=== PATIENT | female | born 1980 | race African-American/Black ===

== ENCOUNTER 2018-10-28 12:20 | Inpatient (IN) | payer OTHER ==
[2018-10-28 14:31] VITALS: BMI 20.1
--- NOTE | 2018-10-28 18:12 | HP ---
CIWA Score Nausea/Vomitin-No Nausea/No Vomiting Muscle Tremors: 3 Anxiety: 4-Mod. Anxious/Guarded Agitation: 2 Paroxysmal Sweats: 1-Minimal Palms Moist Orientation: 0-Oriented Tacttile Disturbances: 2-Mild Itch/Numbness/Burn (both feet) Auditory Disturbances: 0-None Visual Disturbances: 1-Very Mild Sensitivity Headache: 0-None Present CIWA-Ar Total Score: 13 - Admission Criteria OASAS Guidelines: Admission for Medically Managed Detox: Requires at least one of the followin. CIWA greater than 12 2. Seizures within the past 24 hours 3. Delirium tremens within the past 24 hours 4. Hallucinations within the past 24 hours 5. Acute intervention needed for co occurring medical disorder 6. Acute intervention needed for co occurring psychiatric disorder 7. Severe withdrawal that cannot be handled at a lower level of care (continued vomiting, continued diarrhea, abnormal vital signs) requiring intravenous medication and/or fluids 8. Patient presents the following: CIWA greater than 12 Admission Criteria Met: Admission criteria met Admission ROS [facility] - [facility] Chief Complaint: " I'm here for alcohol detox" Allergies/Adverse Reactions: Allergies Allergy/AdvReac Type Severity Reaction Status Date / Time No Known Drug Allergies Allergy Verified 10/28/18 17:33 History of Present Illness: 38 yo female, homeless, with hx of alcohol and crack/cocaine dependence is here seeking detox. utox positive for thc, meth, mtd, bzo, denies using any other substances other than crack /cocaine and alcohol and requested alcohol detox. Last [facility] April 2017 reports relapse soon after, reports no significant period of sobriety. Denies hx of seizures or blackouts. PMHX: bipolar, depression and schizophrenia. Denies suicidal / homicidal ideation. Exam Limitations: No Limitations - Ebola screening Have you traveled outside of the country in the last 21 days: No Have you had contact with anyone from an Ebola affected area: No Have you been sick,other than usual withdrawal symptoms: No - Review of Systems Constitutional: Chills, Changes in sleep EENT: reports: Nose Congestion Respiratory: reports: No Symptoms reported Cardiac: reports: No Symptoms Reported GI: reports: Nausea, Poor Fluid Intake : reports: No Symptoms Reported Musculoskeletal: reports: Other (foot pain) Integumentary: reports: Pruritus Neuro: reports: Paresthesia (both feet) Endocrine: reports: Increased Thirst Hematology: reports: No Symptoms Reported Psychiatric: reports: Orientated x3, Anxious Other Systems: Reviewed and Negative Patient History - Patient Medical History Hx Anemia: No Hx Asthma: No Hx Chronic Obstructive Pulmonary Disease (COPD): No Hx Cancer: No Hx Cardiac Disorders: No Hx Congestive Heart Failure: No Hx Hypertension: No Hx Hypercholesterolemia: No Hx Pacemaker: No HX Cerebrovascular Accident: No Hx Seizures: No Hx Dementia: No Hx Diabetes: No Hx Gastrointestinal Disorders: No Hx Liver Disease: No Hx Genitourinary Disorders: No Hx Sexually Transmitted Disorders: No Hx Renal Disease (ESRD): No Hx Thyroid Disease: No Hx Human Immunodeficiency Virus (HIV): No Hx Hepatitis C: No Hx Depression: No Hx Suicide Attempt: Yes (25 years old jump bridge) Hx Bipolar Disorder: Yes Hx Schizophrenia: Yes - Patient Surgical History Past Surgical History: No Hx Neurologic Surgery: No Hx Cataract Extraction: No Hx Cardiac Surgery: No Hx Lung Surgery: No Hx Breast Surgery: No Hx Breast Biopsy: No Hx Abdominal Surgery: No Hx Appendectomy: No Hx Cholecystectomy: No Hx Genitourinary Surgery: No Hx Section: No Hx Orthopedic Surgery: No Hx Hysterectomy: No Anesthesia Reaction: No - Reproductive History Patient is a Female of Child Bearing Age (11 -55 yrs old): Yes (Reports no menses has IUD ) Last Menstrual Period: 05/09/10 Patient : No - Smoking Cessation Smoking history: Current every day smoker Have you smoked in the past 12 months: Yes Aproximately how many cigarettes per day: 7 Cigars Per Day: 0 Hx Chewing Tobacco Use: No Initiated information on smoking cessation: Yes 'Breaking Loose' booklet given: 10/28/18 - Substance & Tx. History Hx Alcohol Use: Yes Hx Substance Use: Yes Substance Use Type: Alcohol, Cocaine Hx Substance Use Treatment: Yes (Last [facility] April 2017 ) - Substances Abused Alcohol Route: Oral Frequency: Daily Amount used: 1 PINT Age of first use: 25 Date of Last Use: 10/28/18 Cocaine Route: Smoking Frequency: Daily Amount used: $100 Age of first use: 25 Date of Last Use: 10/28/18 Family Disease History - Family Disease History Family Disease History: [place]: Grandparent, Other: Father (depression), Mother ( alcoholic) Admission Physical Exam [facility] - Vital Signs Vital Signs: Vital Signs - 24 hr 10/28/18 14:29 Temperature 98.9 F Pulse Rate 98 H Respiratory 18 Rate Blood Pressure 101/61 - Physical General Appearance: Yes: Disheveled (unkempt, malodorous), Thin, Irritable, Anxious HEENTM: Yes: EOMI, Hearing grossly Normal, Normal ENT Inspection, Normocephalic , Normal Voice, VJ, Pharynx Normal, Tm's normal, Other (poor dentition,) Respiratory: Yes: Chest Non-Tender, Lungs Clear, Normal Breath Sounds, No Respiratory Distress, No Accessory Muscle Use Neck: Yes: Within Normal Limits Breast: Yes: Breast Exam Deferred Cardiology: Yes: Regular Rhythm, Regular Rate Abdominal: Yes: Normal Bowel Sounds, Non Tender, Flat, Soft Genitourinary: Yes: Within Normal Limits Back: Yes: Normal Inspection Musculoskeletal: Yes: full range of Motion, Gait Steady, Pelvis Stable Extremities: Yes: Normal Capillary Refill, Normal Inspection, Normal Range of Motion, Non-Tender Neurological: Yes: conservation of resources commissioner II-XII NML intact, Fully Oriented, Alert, Motor Strength 5/5, Other (flat affect) Integumentary: Yes: Normal Color, Warm, Diaphoresis Lymphatic: Yes: Within Normal Limits - Diagnostic (1) Alcohol dependence with uncomplicated withdrawal Current Visit: Yes Status: Acute (2) Nicotine dependence Current Visit: Yes Status: Acute Qualifiers: Nicotine product type: cigarettes Substance use status: in withdrawal Qualified Code(s): F17.213 - Nicotine dependence, cigarettes, with withdrawal (3) Weight loss Current Visit: Yes Status: Acute (4) Cocaine dependence, uncomplicated Current Visit: Yes Status: Chronic Cleared for Admission [facility] - Detox or Rehab [facility] Level of Care: Medically Managed Detox Regimen/Protocol: Librium [facility] Breath Alcohol Content Breath Alcohol Content: 0 Urine Pregancy Test - Result Urine Test Results: Negative - NO Line Present Urine Drug Screen - Results Drug Screen Negative: No Urine Drug Screen Results: THC-Marijuana, JUAN ALBERTO-Cocaine, MET-Methamphetamine, BZO- Benzodiazepines, MTD-Methadone Inpatient Rehab Admission - Rehab Decision to Admit Inpatient rehab admission?: No
[2018-10-28] MEDS ORDERED: ACETAMINOPHEN 325 MG TABLET (FP) PO PRN ×2 (18:16)
[2018-10-28] MEDS ORDERED: MAGNESIUM HYDROX 2400MG/30ML ORAL SUSPENSION 30 ML CUP PO PRN (18:16)
[2018-10-28] MEDS ORDERED: MAG HYDROX/AL HYDROX/SIMETH 30 ML UNIT-DOSE CUP PO PRN (18:16)
[2018-10-28] MEDS ORDERED: ONDANSETRON *ODT* 4 MG TABLET SL PRN (18:16)
[2018-10-28] MEDS ORDERED: hydrOXYzine PAMOATE 25 MG CAPSULE (FP) PO PRN (18:16)
[2018-10-28] MEDS ORDERED: BISMUTH SUBSALICYLATE 524 MG/30 ML UD PO PRN (18:16)
[2018-10-28] MEDS ORDERED: MAGNESIUM CITRATE 300 ML BOTTLE PO PRN (18:16)
[2018-10-28] MEDS ORDERED: IBUPROFEN 400 MG TABLET (FP) PO PRN (18:16)
[2018-10-28] MEDS ORDERED: METHOCARBAMOL 500 MG TABLET PO PRN (18:16)
[2018-10-28] MEDS ORDERED: MELATONIN 5 MG TABLETS PO PRN (18:16)
[2018-10-28] MEDS ORDERED: NICOTINE POLACRILEX 2 MG GUM BUC PRN (18:16)
[2018-10-28] MEDS ORDERED: MENTHOL/PHENOL 1 EACH UD MM PRN (18:16)
[2018-10-28] MEDS: chlordiazePOXIDE HCL 10 MG CAPSULE PO PRN (20:29)
[2018-10-28] MEDS: THIAMINE HCL 100 MG TABLET (FP) PO SCH (22:21)
[2018-10-28] MEDS: chlordiazePOXIDE HCL 25 MG CAPSULE PO SCH (22:21)
[2018-10-29] MEDS: chlordiazePOXIDE HCL 25 MG CAPSULE PO SCH ×2 (06:35→14:26)
[2018-10-29] MEDS: PRENATAL VITAMINS W/ FOLIC ACID TABLET (FP) PO SCH (10:32)
[2018-10-29] MEDS: NICOTINE 14 MG/24 HOURS TOPICAL PATCH TD SCH (10:32)
--- NOTE | 2018-10-29 12:16 | CONSULT ---
[facility] Psychiatric Consult - Data Date of interview: 10/29/18 Admission source: [facility] Identifying data: Readmission to [facility] for this 38 y/o AA female self- referred for detoxification (cocaine, alcohol). Patient is single, no children, homeless, unemployed and supported on SSI benefits. Substance Abuse History: patient declines to discuss her pattern of substance abuse. Information taken from current [facility] report as follows : Smoking history: Current every day smoker. Have you smoked in the past 12 months: Yes. Aproximately how many cigarettes per day: 7. Cigars Per Day: 0. Hx Chewing Tobacco Use: No. Initiated information on smoking cessation: Yes. 'Breaking Loose' booklet given: 10/28/18. - Substance & Tx. History. Hx Alcohol Use: Yes. Hx Substance Use: Yes. Substance Use Type: Alcohol, Cocaine. Hx Substance Use Treatment: Yes (Last [facility] April 2017 ). - Substances Abused. Alcohol. Route: Oral. Frequency: Daily. Amount used: 1 PINT. Age of first use: 25. Date of Last Use: 10/28/18. Cocaine. Route: Smoking. Frequency: Daily. Amount used: $100. Age of first use: 25. Date of Last Use: 10/28/18 Medical History: Patient declines to provide information about medical history. Psychiatric History: Patient is a hostile and irritable historian. She, however , admits to a history of psychiatric illness which started in her late 20's. Diagnosed with Schizophrenia. Medicated with decanoate haloperidol. Ms Warner reports monthly follow-up with the [facility] team. She denies history of suicide attempts but records at [facility] indicate a distant suicide attempt, at age 25, via jumping off of a bridge. Physical/Sexual Abuse/Trauma History: No information. Ms Warner declines discussion in this domain. Additional Comment: Urine Drug Screen Results: THC-Marijuana, JUAN ALBERTO-Cocaine, MET- Methamphetamine, BZO-Benzodiazepines, MTD-Methadone. Noted. Mental Status Exam - Mental Status Exam Alert and Oriented to: Time, Place, Person Cognitive Function: Grossly Intact Patient Appearance: Unkempt, Disheveled Mood: Angry, Hostile, Withdrawn, Irritable Affect: Inappropriate, Mood Congruent Patient Behavior: Fatigued, Uncooperative, Guarded Speech Pattern: Clear Voice Loudness: Normal Thought Process: Goal Oriented Thought Disorder: Not Present Hallucinations: Denies Suicidal Ideation: Denies Homicidal Ideation: Denies Insight/Judgement: Poor Sleep: Fair Appetite: Good Gait/Station: Other (not observed ; in bed for entire interview) Psychiatric Findings - Problem List ([place] 1, 2,3) (1) Alcohol dependence with uncomplicated withdrawal Current Visit: Yes Status: Acute (2) Cocaine dependence, uncomplicated Current Visit: Yes Status: Chronic (3) Nicotine dependence Current Visit: Yes Status: Chronic Qualifiers: Nicotine product type: cigarettes Substance use status: in withdrawal Qualified Code(s): F17.213 - Nicotine dependence, cigarettes, with withdrawal (4) Substance induced mood disorder Current Visit: Yes Status: Suspected (5) Schizophrenia Current Visit: Yes Status: Chronic Comment: On haloperidol decanoate. Dose not disclosed. Patient is followed by the [facility] team. - Initial Treatment Plan Initial Treatment Plan: Psychoeducation to be initiated when patient becomes more cooperative. Support. Sleep hygiene. Detoxification. Contact ACT team for information about dose of decanoate and date of last injection. AA/NA meetings. Observation. Evaluated with medical students in attendance (with patient's verbal authorization).
[2018-10-29 12:44] LABS: ALK PHOS 54 U/L (45-117); ANION GAP 2 MMOL/L (8-16); BILIRUBIN,TOTAL 0.3 mg/dL (0.2-1); BLOOD UREA NITROGEN 13 mg/dL (7-18); CALCIUM 8.3 mg/dL (8.5-10.1); CHLORIDE 110 mmol/L (98-107); CO2 30 mmol/L (21-32); GLUCOSE,RANDOM 84 mg/dL (74-106); POTASSIUM 4.3 mmol/L (3.5-5.1); SGOT/AST 12 U/L (15-37); SGPT/ALT 12 U/L (13-61); SODIUM 141 mmol/L (136-145); TOT PROT 6.6 g/dl (6.4-8.2)
[2018-10-29 13:08] LABS: HEMATOCRIT 37.1 % (32.4-45.2); HEMOGLOBIN 12.4 GM/dL (10.7-15.3); MCH 32.2 pg (25.7-33.7); MCHC 33.5 g/dl (32.0-36.0); MEAN CELL VOLUME 96.1 fl (80-96); MEAN PLT VOLUME 7.4 fl (7.5-11.1); PLATELET COUNT 338 K/MM3 (134-434); RBC 3.86 M/mm3 (3.60-5.2); RDW 14.4 % (11.6-15.6); WHITE BLOOD COUNT 4.6 K/mm3 (4.0-10.0)
--- NOTE | 2018-10-29 13:17 | PN ---
[facility] CIWA - CIWA Score Nausea/Vomitin-No Nausea/No Vomiting Muscle Tremors: 2 Anxiety: 1-Mildly Anxious Agitation: 1-Slight > Activity Paroxysmal Sweats: 1-Minimal Palms Moist Orientation: 2-Disoriented Date<2 days Tacttile Disturbances: 0-None Auditory Disturbances: 0-None Visual Disturbances: 0-None Headache: 1-Very Mild CIWA-Ar Total Score: 8 S Progress Note (SOAP) Subjective: tremor sweating restlessness trouble sleep through the night Objective: 10/29/18 13:29 Vital Signs Temperature 97.3 F L 10/29/18 09:16 Pulse Rate 81 10/29/18 09:16 Respiratory Rate 18 10/29/18 09:16 Blood Pressure 90/53 L 10/29/18 09:16 O2 Sat by Pulse Oximetry (%) Laboratory Last Values WBC 4.6 K/mm3 (4.0-10.0) 10/29/18 07:00 RBC 3.86 M/mm3 (3.60-5.2) 10/29/18 07:00 Hgb 12.4 GM/dL (10.7-15.3) 10/29/18 07:00 Hct 37.1 % (32.4-45.2) 10/29/18 07:00 MCV 96.1 fl (80-96) H 10/29/18 07:00 MCH 32.2 pg (25.7-33.7) 10/29/18 07:00 MCHC 33.5 g/dl (32.0-36.0) 10/29/18 07:00 RDW 14.4 % (11.6-15.6) 10/29/18 07:00 Plt Count 338 K/MM3 (134-434) 10/29/18 07:00 MPV 7.4 fl (7.5-11.1) L 10/29/18 07:00 Sodium 141 mmol/L (136-145) 10/29/18 07:00 Potassium 4.3 mmol/L (3.5-5.1) 10/29/18 07:00 Chloride 110 mmol/L (98-107) H 10/29/18 07:00 Carbon Dioxide 30 mmol/L (21-32) 10/29/18 07:00 Anion Gap 2 MMOL/L (8-16) L 10/29/18 07:00 BUN 13 mg/dL (7-18) 10/29/18 07:00 Creatinine 1.0 mg/dL (0.55-1.3) 10/29/18 07:00 Creat Clearance w eGFR > 60 (>60) 10/29/18 07:00 Random Glucose 84 mg/dL (74-106) 10/29/18 07:00 Calcium 8.3 mg/dL (8.5-10.1) L 10/29/18 07:00 Total Bilirubin 0.3 mg/dL (0.2-1) 10/29/18 07:00 AST 12 U/L (15-37) L 10/29/18 07:00 ALT 12 U/L (13-61) L 10/29/18 07:00 Alkaline Phosphatase 54 U/L (45-117) 10/29/18 07:00 Total Protein 6.6 g/dl (6.4-8.2) 10/29/18 07:00 Albumin 3.0 g/dl (3.4-5.0) L 10/29/18 07:00 lab noted Assessment: 10/29/18 13:30 withdrawal sx Plan: continue detox
[2018-10-29] MEDS: THIAMINE HCL 100 MG TABLET (FP) PO SCH (22:22)
[2018-10-29] MEDS: chlordiazePOXIDE 5 MG CAPSULE PO SCH (22:23)
[2018-10-29] MEDS: chlordiazePOXIDE HCL 10 MG CAPSULE PO PRN (23:31)
[2018-10-30] MEDS: chlordiazePOXIDE 5 MG CAPSULE PO SCH ×2 (05:50→13:04)
[2018-10-30] MEDS: PRENATAL VITAMINS W/ FOLIC ACID TABLET (FP) PO SCH (10:41)
[2018-10-30] MEDS: NICOTINE 14 MG/24 HOURS TOPICAL PATCH TD SCH (10:41)
--- NOTE | 2018-10-30 13:43 | DS ---
[facility] Detox Discharge Summary Admission Date: 10/28/18 Discharge Date: 10/30/18 - History Present History: Alcohol Dependence Additional Comments: 38 years old female admitted on 10/28/18 for alcohol withdrawal stabilization feeling better today preferring alcohol rehab today alert no acute distress, [facility] - Physical Exam Results Vital Signs: Vital Signs Temperature 97.9 F 10/30/18 13:32 Pulse Rate 89 10/30/18 13:32 Respiratory Rate 18 10/30/18 13:32 Blood Pressure 110/73 10/30/18 13:32 O2 Sat by Pulse Oximetry (%) Pertinent Admission Physical Exam Findings: withdrawal sx Laboratory Last Values WBC 4.6 K/mm3 (4.0-10.0) 10/29/18 07:00 RBC 3.86 M/mm3 (3.60-5.2) 10/29/18 07:00 Hgb 12.4 GM/dL (10.7-15.3) 10/29/18 07:00 Hct 37.1 % (32.4-45.2) 10/29/18 07:00 MCV 96.1 fl (80-96) H 10/29/18 07:00 MCH 32.2 pg (25.7-33.7) 10/29/18 07:00 MCHC 33.5 g/dl (32.0-36.0) 10/29/18 07:00 RDW 14.4 % (11.6-15.6) 10/29/18 07:00 Plt Count 338 K/MM3 (134-434) 10/29/18 07:00 MPV 7.4 fl (7.5-11.1) L 10/29/18 07:00 Sodium 141 mmol/L (136-145) 10/29/18 07:00 Potassium 4.3 mmol/L (3.5-5.1) 10/29/18 07:00 Chloride 110 mmol/L (98-107) H 10/29/18 07:00 Carbon Dioxide 30 mmol/L (21-32) 10/29/18 07:00 Anion Gap 2 MMOL/L (8-16) L 10/29/18 07:00 BUN 13 mg/dL (7-18) 10/29/18 07:00 Creatinine 1.0 mg/dL (0.55-1.3) 10/29/18 07:00 Creat Clearance w eGFR > 60 (>60) 10/29/18 07:00 Random Glucose 84 mg/dL (74-106) 10/29/18 07:00 Calcium 8.3 mg/dL (8.5-10.1) L 10/29/18 07:00 Total Bilirubin 0.3 mg/dL (0.2-1) 10/29/18 07:00 AST 12 U/L (15-37) L 10/29/18 07:00 ALT 12 U/L (13-61) L 10/29/18 07:00 Alkaline Phosphatase 54 U/L (45-117) 10/29/18 07:00 Total Protein 6.6 g/dl (6.4-8.2) 10/29/18 07:00 Albumin 3.0 g/dl (3.4-5.0) L 10/29/18 07:00 RPR Titer Nonreactive (NONREACTIVE) 10/29/18 07:00 lab noted - Treatment Hospital Course: Detox Protocol Followed, Detoxed Safely, Responded well, Discharged Condition Good, Rehab Referral Accepted Patient [facility] - Medication Discharge Medications: Ambulatory Orders Haloperidol Decanoate [Haldol Decanoate (Long-Acting) -] 500 mg IM MONTHLY 10/28 - Diagnosis (1) Alcohol dependence with uncomplicated withdrawal Current Visit: Yes Status: Acute (2) Weight loss Current Visit: Yes Status: Acute (3) Nicotine dependence Current Visit: Yes Status: Acute Qualifiers: Nicotine product type: cigarettes Substance use status: in withdrawal Qualified Code(s): F17.213 - Nicotine dependence, cigarettes, with withdrawal (4) Substance induced mood disorder Current Visit: Yes Status: Suspected (5) GERD (gastroesophageal reflux disease) Current Visit: Yes Status: Chronic Qualifiers: Esophagitis presence: without esophagitis Qualified Code(s): K21.9 - Gastro -esophageal reflux disease without esophagitis (6) Bipolar II disorder Current Visit: Yes Status: Suspected - AMA Did Patient Leave Against Medical Advice: No
--- NOTE | 2018-10-30 18:56 | PN ---
[facility] Progress Note Note: Psychiatry Attending's note : Attempt made by this senior grant writer to contact [facility] team. Called psychiatrist, Dr Ollie Grossman. For information about dose of haldol decanoate. At [phone] : no response. Will follow.
[2018-10-30] MEDS ORDERED: chlordiazePOXIDE HCL 10 MG CAPSULE PO PRN (21:00)
[2018-10-30] MEDS: chlordiazePOXIDE HCL 10 MG CAPSULE PO SCH (22:22)
[2018-10-31] MEDS: chlordiazePOXIDE HCL 10 MG CAPSULE PO SCH (06:26)
[2018-10-31 09:12] VITALS: BP 85/53; PULSE 80; TEMP 97.8
--- NOTE | 2018-10-31 19:15 | DS ---
[facility] Detox Discharge Summary Admission Date: 10/28/18 Discharge Date: 10/31/18 - History Present History: Alcohol Dependence, Cocaine Dependence Additional Comments: PATIENT COMPLETED FULL DETOX REGIMEN. HOWEVER, WHILE POSSIBILITY OF REHAB ADMISSION AT [facility] ([place], [place]) WAS BEING INVESTIGATED FOR PATIENT, SHE ELECTED TO LEAVE DESPITE ENCOURAGEMENT TO REMAIN FOR REHAB) AND NOTED THAT SHE WOULD RETURN TO PREVIOUS '[facility].' PATIENT ALSO REPORTS THAT SHE WOULD RETURN TO PREVIOUS [facility] - ACT TEAM IN [place], [place] FOR AFTERCARE. PATIENT ALSO ADVISED TO CONSIDER LOCAL 12-STEP / NA / AA OUTPATIENT SUPPORT GROUP PROGRAMS FOR AFTERCARE. PATIENT VERBALIZED UNDERSTANDING OF RECOMMENDATION. PATIENT WAS DISCHARGED IN DETOX UNIT IN STABLE MEDICAL CONDITION. Pertinent Past History: History of Bipolar Disorder, History of Schizoaffective Disorder, Nicotine Dependence, Weight Loss. - Physical Exam Results Vital Signs: Vital Signs Temperature 97.8 F 10/31/18 09:11 Pulse Rate 80 10/31/18 09:11 Respiratory Rate 16 10/31/18 09:11 Blood Pressure 85/53 L 10/31/18 09:11 O2 Sat by Pulse Oximetry (%) Pertinent Admission Physical Exam Findings: WITHDRAWAL SYMPTOMS. Laboratory Tests 10/29/18 10/29/18 10/29/18 07:00 07:00 07:00 WBC 4.6 RBC 3.86 Hgb 12.4 Hct 37.1 MCV 96.1 H MCH 32.2 MCHC 33.5 RDW 14.4 Plt Count 338 MPV 7.4 L Sodium 141 Potassium 4.3 Chloride 110 H Carbon Dioxide 30 Anion Gap 2 L BUN 13 Creatinine 1.0 Creat Clearance w eGFR > 60 Random Glucose 84 Calcium 8.3 L Total Bilirubin 0.3 AST 12 L ALT 12 L Alkaline Phosphatase 54 Total Protein 6.6 Albumin 3.0 L RPR Titer Nonreactive LABS NOTED. - Treatment Hospital Course: Detox Protocol Followed, Detoxed Safely, Responded well, Discharged Condition Good Patient has Accepted a Rehab Referral to: PATIENT ADVISED TO CONSIDER LOCAL 12- STEP/NA/AA OUTPATIENT SUPPORT GROUPS. - Medication Discharge Medications: Ambulatory Orders Haloperidol Decanoate [Haldol Decanoate (Long-Acting) -] 500 mg IM MONTHLY 10/28 - Diagnosis (1) Alcohol dependence with uncomplicated withdrawal Status: Acute (2) Weight loss Status: Acute (3) Cocaine dependence, uncomplicated Status: Chronic (4) Nicotine dependence Status: Acute Qualifiers: Nicotine product type: cigarettes Substance use status: in withdrawal Qualified Code(s): F17.213 - Nicotine dependence, cigarettes, with withdrawal (5) Schizophrenia Status: Chronic Qualifiers: Schizophrenia type: unspecified Qualified Code(s): F20.9 - Schizophrenia, unspecified (6) Substance induced mood disorder Status: Suspected - AMA Did Patient Leave Against Medical Advice: No
== END 2018-10-31 11:13 | disposition home or self-care (01) | DRG 774 ==
LOC: YASAS 12:20 → Y3N 19:32
PROVIDERS: ADMIT Surgery; ATTEND Surgery
PROC: HZ2ZZZZ Detoxification Services for Substance Abuse Treatment (ICD-10-PCS; principal; 2018-10-28)
DX: F10.230 Alcohol dependence with withdrawal, uncomplicated (principal); F14.20 Cocaine dependence, uncomplicated; F17.213 Nicotine dependence, cigarettes, with withdrawal; F20.9 Schizophrenia, unspecified; F19.24 Other psychoactive substance dependence with psychoactive substance-induced mood disorder; F31.81 Bipolar II disorder; K21.9 Gastro-esophageal reflux disease without esophagitis; Z97.5 Presence of (intrauterine) contraceptive device; Z91.5 Personal history of self-harm
CPT/HCPCS: 36415; 80053; 85027; 86593

== ENCOUNTER 2018-12-20 16:51 | Inpatient (IN) | payer OTHER ==
[2018-12-20 20:07] VITALS: BMI 20.8
--- NOTE | 2018-12-20 21:43 | HP ---
CIWA Score Nausea/Vomitin-No Nausea/No Vomiting Muscle Tremors: 4-Moderate,w/Arms Extend Anxiety: 4-Mod. Anxious/Guarded Agitation: 4-Moderately Restless Paroxysmal Sweats: 3 Orientation: 3-Disoriented Date>2 days Tacttile Disturbances: 2-Mild Itch/Numbness/Burn Auditory Disturbances: 2-Mild Harshness/Frighten (here intermitent voices- non commanding) Visual Disturbances: 2-Mild Sensitivity Headache: 2-Mild CIWA-Ar Total Score: 26 - Admission Criteria OASAS Guidelines: Admission for Medically Managed Detox: Requires at least one of the followin. CIWA greater than 12 2. Seizures within the past 24 hours 3. Delirium tremens within the past 24 hours 4. Hallucinations within the past 24 hours 5. Acute intervention needed for co occurring medical disorder 6. Acute intervention needed for co occurring psychiatric disorder 7. Severe withdrawal that cannot be handled at a lower level of care (continued vomiting, continued diarrhea, abnormal vital signs) requiring intravenous medication and/or fluids 8. Patient presents the following: CIWA greater than 12, Acute intervention needed for co-occurring med or psych disorder Admission Criteria Met: Admission criteria met Admission ROS [facility] Chief Complaint: C/O WITHDRAWAL SX'S. SEEKING DETOX Allergies/Adverse Reactions: Allergies Allergy/AdvReac Type Severity Reaction Status Date / Time No Known Drug Allergies Allergy Verified 12/20/18 19:56 History of Present Illness: 38 y.o femaLE WITH ALCOHOLISM HERE FOR DETOX. CLIENT IS KNOWN TOT HIS PROGRAM. LAST HERE 10/2018. REFERRED BY OUTPATIENT MUSIC ASSISTANT TODAY. PRESENTS WITH C/O WITHDRAWAL SX'S. CIWA 26. REPORTS SEIZURE 4 WEEKS AGO REQUIRING HOSPITALIZATION FOR FACIAL INJURY FALLING FROM STAIRS. HAS BEEN DRINKING DAILY FOR THE PAST MONTH. LAST DRINK 1 DAY AGO.HAS SUTURES TO FORHEAD...... DENIES SIGNIFICANT PERIOD OF CLEAN TIME. DENIES SI/HI/UNDOMICILED, SSI, DENIES LEGALS Exam Limitations: No Limitations - Ebola screening Have you traveled outside of the country in the last 21 days: No (N) Have you had contact with anyone from an Ebola affected area: No Do you have a fever: No - Review of Systems Constitutional: Chills, Night Sweats, Changes in sleep EENT: reports: No Symptoms Reported Respiratory: reports: No Symptoms reported Cardiac: reports: No Symptoms Reported GI: reports: Poor Fluid Intake, Abdominal cramping : reports: No Symptoms Reported Musculoskeletal: reports: No Symptoms Reported Integumentary: reports: Other (HEALING LAC TO FORHEAD WITH SUTURES) Neuro: reports: Headache, Numbness, Seizure (LAST 4 WEEKS AGO), Tremors Endocrine: reports: No Symptoms Reported Hematology: reports: No Symptoms Reported Psychiatric: reports: Orientated x3, Anxious, other (SCHIZOPHRENIA) Other Systems: Reviewed and Negative Patient History - Patient Medical History Hx Anemia: No Hx Asthma: No Hx Chronic Obstructive Pulmonary Disease (COPD): No Hx Cancer: No Hx Cardiac Disorders: No Hx Congestive Heart Failure: No Hx Hypertension: No Hx Hypercholesterolemia: No Hx Pacemaker: No HX Cerebrovascular Accident: No Hx Seizures: Yes (LAST 4 WEEKS AGO) Hx Dementia: No Hx Diabetes: No Hx Gastrointestinal Disorders: No Hx Liver Disease: No Hx Genitourinary Disorders: No Hx Sexually Transmitted Disorders: No Hx Renal Disease (ESRD): No Hx Thyroid Disease: No Hx Human Immunodeficiency Virus (HIV): No Hx Hepatitis C: No Hx Depression: No Hx Suicide Attempt: Yes (25 years old jump bridge) Hx Bipolar Disorder: Yes Hx Schizophrenia: Yes - Patient Surgical History Past Surgical History: No Hx Neurologic Surgery: No Hx Cataract Extraction: No Hx Cardiac Surgery: No Hx Lung Surgery: No Hx Breast Surgery: No Hx Breast Biopsy: No Hx Abdominal Surgery: No Hx Appendectomy: No Hx Cholecystectomy: No Hx Genitourinary Surgery: No Hx Section: No Hx Orthopedic Surgery: No Hx Hysterectomy: No Anesthesia Reaction: No - PPD History Previous Implant?: Yes Documented Results: Negative w/proof Implanted On Prior [facility] Admission?: Yes Date: 10/30/18 Results: 0MM PPD to be Administered?: No - Reproductive History Last Menstrual Period: 05/09/10 - Smoking Cessation Smoking history: Current every day smoker Have you smoked in the past 12 months: Yes Aproximately how many cigarettes per day: 7 Cigars Per Day: 0 Hx Chewing Tobacco Use: No Initiated information on smoking cessation: Yes 'Breaking Loose' booklet given: 12/20/18 - Substance & Tx. History Hx Alcohol Use: Yes Hx Substance Use: Yes Substance Use Type: Alcohol, Cocaine, Marijuana Hx Substance Use Treatment: Yes ([facility]) - Substances abused Alcohol Substance route: Oral Frequency: Daily Amount used: 1PINT Age of first use: 21 Date of last use: 12/19/18 Crack Substance route: Smoking Frequency: Daily Amount used: $200 Age of first use: 24 Date of last use: 12/19/18 Marijuana/Hashish Substance route: Oral Frequency: Daily Amount used: 1 JOINT Age of first use: 21 Date of last use: 12/19/18 Family Disease History - Family Disease History Family Disease History: [place]: Grandparent, Other: Father (depression), Mother ( alcoholic) Admission Physical Exam [facility] - Vital Signs Vital Signs: Vital Signs - 24 hr 12/20/18 19:52 Temperature 97.3 F L Pulse Rate 76 Respiratory 18 Rate Blood Pressure 121/91 - Physical General Appearance: Yes: Disheveled, Tremorous, Anxious HEENTM: Yes: Normal Voice, JV, Pharynx Normal, Other (SUTURES NOTED TO 3 AREAS TO THE FOREHEAD WITH HEALED LACERATIONS POOR DENTITION MISSING TEETH) Respiratory: Yes: Chest Non-Tender, Lungs Clear, Normal Breath Sounds, No Respiratory Distress, No Accessory Muscle Use Neck: Yes: No masses,lesions,Nodules, Supple, Trachea in good position Breast: Yes: Breast Exam Deferred Cardiology: Yes: Regular Rhythm, Regular Rate, S1, S2 Abdominal: Yes: Normal Bowel Sounds, Non Tender, Flat, Soft Genitourinary: Yes: Within Normal Limits (NO C/O) Back: Yes: Normal Inspection Musculoskeletal: Yes: full range of Motion, Gait Steady Extremities: Yes: Normal Capillary Refill, Normal Range of Motion, Non-Tender, Tremors Neurological: Yes: Fully Oriented, Alert, Motor Strength 5/5, Depressed Affect Integumentary: Yes: Dry, Warm Lymphatic: Yes: Within Normal Limits - Diagnostic (1) Withdrawal seizures Current Visit: Yes Status: Chronic Qualifiers: Complication of substance-induced condition: uncomplicated Qualified Code(s ): F19.230 - Other psychoactive substance dependence with withdrawal, uncomplicated; R56.9 - Unspecified convulsions (2) Auditory hallucination Current Visit: Yes Status: Chronic (3) Alcohol dependence with uncomplicated withdrawal Current Visit: Yes Status: Acute (4) Nicotine dependence Current Visit: Yes Status: Chronic Qualifiers: Nicotine product type: cigarettes Substance use status: in withdrawal Qualified Code(s): F17.213 - Nicotine dependence, cigarettes, with withdrawal (5) Cocaine dependence, uncomplicated Current Visit: Yes Status: Chronic (6) Schizophrenia Current Visit: Yes Status: Chronic Qualifiers: Schizophrenia type: unspecified Qualified Code(s): F20.9 - Schizophrenia, unspecified Comment: On haloperidol decanoate. Dose not disclosed. Patient is followed by the [facility] team. (7) Substance induced mood disorder Current Visit: Yes Status: Chronic (8) Attention to dressings and sutures Current Visit: Yes Status: Chronic Comment: NEEDS TO BE REMOVED APPEARS TO HAVE BEEN PRESENT LONGER THAN 10 DAYS Cleared for Admission [facility] - Detox or Rehab [facility] Level of Care: Medically Managed Detox Regimen/Protocol: Librium Claeared for Rehab Admission: No Inpatient Rehab Admission - Rehab Decision to Admit Inpatient rehab admission?: No
[2018-12-20] MEDS ORDERED: METHOCARBAMOL 500 MG TABLET PO PRN (21:51)
[2018-12-20] MEDS ORDERED: P-EPHED 60MG/TRIPROLIDI 2.5MG TABLET PO PRN (21:51)
[2018-12-20] MEDS ORDERED: ONDANSETRON *ODT* 4 MG TABLET SL PRN (21:51)
[2018-12-20] MEDS ORDERED: DICYCLOMINE HCL 10 MG CAPSULE PO PRN (21:51)
[2018-12-20] MEDS ORDERED: MAGNESIUM CITRATE 300 ML BOTTLE PO PRN (21:51)
[2018-12-20] MEDS ORDERED: MENTHOL/PHENOL 1 EACH UD MM PRN (21:51)
[2018-12-20] MEDS ORDERED: hydrOXYzine PAMOATE 25 MG CAPSULE (FP) PO PRN (21:51)
[2018-12-20] MEDS ORDERED: MAGNESIUM HYDROX 2400MG/30ML ORAL SUSPENSION 30 ML CUP PO PRN (21:51)
[2018-12-20] MEDS ORDERED: ACETAMINOPHEN 325 MG TABLET (FP) PO PRN ×2 (21:51)
[2018-12-20] MEDS ORDERED: IBUPROFEN 400 MG TABLET (FP) PO PRN ×2 (21:51)
[2018-12-20] MEDS ORDERED: MELATONIN 5 MG TABLETS PO PRN (21:51)
[2018-12-20] MEDS ORDERED: MAG HYDROX/AL HYDROX/SIMETH 30 ML UNIT-DOSE CUP PO PRN (21:51)
[2018-12-20] MEDS ORDERED: chlordiazePOXIDE HCL 25 MG CAPSULE PO PRN (21:51)
[2018-12-20] MEDS ORDERED: BISMUTH SUBSALICYLATE 524 MG/30 ML UD PO PRN (21:51)
[2018-12-20] MEDS ORDERED: guaiFENesin 200 MG/10 ML 10 ML UNIT-DOSE CUPS PO PRN (21:51)
[2018-12-20] MEDS: THIAMINE HCL 100 MG TABLET (FP) PO SCH (23:56)
[2018-12-20] MEDS: traZODone HCL 50 MG TABLET (FP) PO PRN (23:58)
[2018-12-20] MEDS: chlordiazePOXIDE HCL 25 MG CAPSULE PO SCH (23:58)
[2018-12-21] MEDS: chlordiazePOXIDE HCL 25 MG CAPSULE PO SCH ×4 (06:19→22:19)
[2018-12-21 10:21] LABS: ALBUMIN 2.9 g/dl (3.4-5.0); ALK PHOS 67 U/L (45-117); ANION GAP 4 MMOL/L (8-16); BILIRUBIN,TOTAL 0.2 mg/dL (0.2-1); BLOOD UREA NITROGEN 14 mg/dL (7-18); CALCIUM 7.9 mg/dL (8.5-10.1); CHLORIDE 112 mmol/L (98-107); CO2 28 mmol/L (21-32); CREATININE 0.9 mg/dL (0.55-1.3); GLUCOSE,RANDOM 83 mg/dL (74-106); POTASSIUM 4.2 mmol/L (3.5-5.1); SGOT/AST 11 U/L (15-37); SGPT/ALT 10 U/L (13-61); SODIUM 144 mmol/L (136-145); TOT PROT 5.9 g/dl (6.4-8.2)
[2018-12-21 10:30] LABS: HEMOGLOBIN 12.2 GM/dL (10.7-15.3); MCH 31.8 pg (25.7-33.7); MEAN CELL VOLUME 96.4 fl (80-96); MEAN PLT VOLUME 7.6 fl (7.5-11.1); PLATELET COUNT 312 K/MM3 (134-434); RBC 3.83 M/mm3 (3.60-5.2); RDW 15.8 % (11.6-15.6); WHITE BLOOD COUNT 4.5 K/mm3 (4.0-10.0)
[2018-12-21] MEDS: PRENATAL VITAMINS W/ FOLIC ACID TABLET (FP) PO SCH (10:34)
[2018-12-21] MEDS: NICOTINE 14 MG/24 HOURS TOPICAL PATCH TD SCH (10:34)
--- NOTE | 2018-12-21 11:07 | CONSULT ---
[facility] Psychiatric Consult - Data Date of interview: 12/21/18 Admission source: [facility] Identifying data: Another admission to [facility] for this 38 y/o AA female self- referred for detoxification (cocaine, cannabis, alcohol). Patient is single, no children, homeless, unemployed and supported on SSI benefits. Substance Abuse History: Discussed with patient. [facility] report is confrmed. See details : Smoking history: Current every day smoker. Have you smoked in the past 12 months: Yes. Aproximately how many cigarettes per day: 7. Cigars Per Day: 0. Hx Chewing Tobacco Use: No. Initiated information on smoking cessation : Yes. 'Breaking Loose' booklet given: 12/20/18. - Substance & Tx. History. Hx Alcohol Use: Yes. Hx Substance Use: Yes. Substance Use Type: Alcohol, Cocaine, Marijuana. Hx Substance Use Treatment: Yes ([facility]). - Substances abused. Alcohol. Substance route: Oral. Frequency: Daily. Amount used: 1PINT. Age of first use: 21. Date of last use: 12/19/18. Crack. Substance route: Smoking. Frequency: Daily. Amount used: $200. Age of first use: 24. Date of last use: 12/19/18. Marijuana/Hashish. Substance route: Oral. Frequency: Daily. Amount used: 1 JOINT. Age of first use: 21. Date of last use: 12/19/18 Medical History: Seizure disorder. Noted abrasions of the forehead (result of a fall, days ago, in the context of an ictal episode). Psychiatric History: Patient admits to an extensive history of psychiatric illness (onset in late 20's). Diagnosed with Schizophrenia. History of multiple psychiatric hospitalizations. " I have been admitted all over ". Patient indicates maintenance on haloperidol decanoate (dose not recalled by patient). Ms Warner reports monthly follow-up with the [facility]. She denies history of suicide attempts but records at [facility] indicate a distant suicide attempt at age 25 (jump off of a bridge). Physical/Sexual Abuse/Trauma History: Not discussed : patient is uncooperative. Additional Comment: Toxicology is not available. Mental Status Exam - Mental Status Exam Alert and Oriented to: Time, Place, Person Cognitive Function: Grossly Intact Patient Appearance: Unkempt, Disheveled (healed abrasions on forehead) Mood: Angry, Hostile, Nervous, Withdrawn, Irritable Affect: Mood Congruent, Constricted Patient Behavior: Fatigued, Uncooperative Speech Pattern: Clear Voice Loudness: Normal Thought Process: Disorganized Thought Disorder: Bizarre Hallucinations: Denies Suicidal Ideation: Denies Homicidal Ideation: Denies Insight/Judgement: Poor Sleep: Well Appetite: Good Muscle strength/Tone: Normal Gait/Station: Normal Psychiatric Findings - Problem List ([place] 1, 2,3) (1) Alcohol dependence with uncomplicated withdrawal Status: Acute (2) Cocaine dependence, uncomplicated Status: Chronic (3) Cannabis dependence Status: Chronic (4) Nicotine dependence Status: Acute Qualifiers: Nicotine product type: cigarettes Substance use status: in withdrawal Qualified Code(s): F17.213 - Nicotine dependence, cigarettes, with withdrawal (5) Schizophrenia Status: Suspected Qualifiers: Schizophrenia type: unspecified Qualified Code(s): F20.9 - Schizophrenia, unspecified Comment: On haloperidol decanoate. Dose not disclosed. Patient is followed by the [facility]. (6) Substance induced mood disorder Status: Chronic - Initial Treatment Plan Initial Treatment Plan: Psychoeducation. Records ([facility]) are revisited. Support. Detoxification. Contact [facility] for collateral information. AA meetings. Observation.
--- NOTE | 2018-12-21 14:50 | PN ---
S CIWA - CIWA Score Nausea/Vomitin-No Nausea/No Vomiting Muscle Tremors: 2 Anxiety: 4-Mod. Anxious/Guarded Agitation: 3 Paroxysmal Sweats: 3 Orientation: 0-Oriented Tacttile Disturbances: 0-None Auditory Disturbances: 0-None Visual Disturbances: 0-None Headache: 0-None Present CIWA-Ar Total Score: 12 [facility] Progress Note (SOAP) Subjective: C/O SLIGHT ANXIETY BUT MODERATE SWEATING. Objective: 12/21/18 14:49 Vital Signs 12/21/18 12/21/18 09:35 13:27 Temperature 97.0 F L 97.8 F Pulse Rate 70 94 H Respiratory 18 18 Rate Blood Pressure 92/60 99/68 Laboratory Tests 12/21/18 12/21/18 07:45 08:00 WBC 4.5 RBC 3.83 Hgb 12.2 Hct 37.0 MCV 96.4 H MCH 31.8 MCHC 33.0 RDW 15.8 H Plt Count 312 MPV 7.6 Sodium 144 Potassium 4.2 Chloride 112 H Carbon Dioxide 28 Anion Gap 4 L BUN 14 Creatinine 0.9 Creat Clearance w eGFR 70.85 Random Glucose 83 Calcium 7.9 L Total Bilirubin 0.2 AST 11 L ALT 10 L Alkaline Phosphatase 67 Total Protein 5.9 L Albumin 2.9 L Assessment: 12/21/18 14:49 WITHDRAWAL SX Plan: CONTINUE DETOX INCREASE PO FLUIDS
[2018-12-21 18:23] LABS: EPI CELLS 10.3 /HPF (0-5/HPF); PH,URINE 5.5 (5.0-8.0); URINE APPEARANCE TURBID; URINE BACTERIA 139.6 /hpf (NEGATIVE); URINE BILIRUBIN NEGATIVE (NEGATIVE); URINE CASTS 8 /lpf (0-8); URINE COLOR YELLOW; URINE GLUCOSE (UA) NEGATIVE (NEGATIVE); URINE KETONE TRACE (NEGATIVE); URINE LEUK ESTERASE TRACE (NEGATIVE); URINE NITRITE NEGATIVE (NEGATIVE); URINE PROTEIN NEGATIVE (NEGATIVE); URINE UROBILINOGEN 0.2 mg/dL (0.2-1.0); URINE WBC 4 /hpf (0-5)
[2018-12-21 18:24] LABS: URINE CRYSTALS OXALATE /hpf
[2018-12-21] MEDS: THIAMINE HCL 100 MG TABLET (FP) PO SCH (22:19)
[2018-12-22] MEDS: chlordiazePOXIDE HCL 25 MG CAPSULE PO SCH ×3 (06:46→17:09)
[2018-12-22] MEDS: NICOTINE POLACRILEX 2 MG GUM BUC PRN ×2 (10:17→18:10)
[2018-12-22] MEDS: PRENATAL VITAMINS W/ FOLIC ACID TABLET (FP) PO SCH (10:17)
[2018-12-22] MEDS: NICOTINE 14 MG/24 HOURS TOPICAL PATCH TD SCH (10:17)
--- NOTE | 2018-12-22 12:44 | PN ---
[facility] CIWA - CIWA Score Nausea/Vomitin-Mild Nausea/No Vomiting Muscle Tremors: 3 Anxiety: 3 Agitation: 2 Paroxysmal Sweats: 1-Minimal Palms Moist Orientation: 1-Uncertain about Date Tacttile Disturbances: 0-None Auditory Disturbances: 0-None Visual Disturbances: 0-None Headache: 1-Very Mild CIWA-Ar Total Score: 12 S Progress Note (SOAP) Subjective: Vital Signs Temperature 96.7 F L 12/22/18 09:23 Pulse Rate 81 12/22/18 09:23 Respiratory Rate 18 12/22/18 09:23 Blood Pressure 111/64 12/22/18 09:23 O2 Sat by Pulse Oximetry (%) Laboratory Last Values WBC 4.5 K/mm3 (4.0-10.0) 12/21/18 08:00 RBC 3.83 M/mm3 (3.60-5.2) 12/21/18 08:00 Hgb 12.2 GM/dL (10.7-15.3) 12/21/18 08:00 Hct 37.0 % (32.4-45.2) 12/21/18 08:00 MCV 96.4 fl (80-96) H 12/21/18 08:00 MCH 31.8 pg (25.7-33.7) 12/21/18 08:00 MCHC 33.0 g/dl (32.0-36.0) 12/21/18 08:00 RDW 15.8 % (11.6-15.6) H 12/21/18 08:00 Plt Count 312 K/MM3 (134-434) 12/21/18 08:00 MPV 7.6 fl (7.5-11.1) 12/21/18 08:00 Sodium 144 mmol/L (136-145) 12/21/18 07:45 Potassium 4.2 mmol/L (3.5-5.1) 12/21/18 07:45 Chloride 112 mmol/L (98-107) H 12/21/18 07:45 Carbon Dioxide 28 mmol/L (21-32) 12/21/18 07:45 Anion Gap 4 MMOL/L (8-16) L 12/21/18 07:45 BUN 14 mg/dL (7-18) 12/21/18 07:45 Creatinine 0.9 mg/dL (0.55-1.3) 12/21/18 07:45 Creat Clearance w eGFR 70.85 (>60) 12/21/18 07:45 Random Glucose 83 mg/dL (74-106) 12/21/18 07:45 Calcium 7.9 mg/dL (8.5-10.1) L 12/21/18 07:45 Total Bilirubin 0.2 mg/dL (0.2-1) 12/21/18 07:45 AST 11 U/L (15-37) L 12/21/18 07:45 ALT 10 U/L (13-61) L 12/21/18 07:45 Alkaline Phosphatase 67 U/L (45-117) 12/21/18 07:45 Total Protein 5.9 g/dl (6.4-8.2) L 12/21/18 07:45 Albumin 2.9 g/dl (3.4-5.0) L 12/21/18 07:45 Urine Color Yellow 12/21/18 12:26 Urine Appearance Turbid 12/21/18 12:26 Urine pH 5.5 (5.0-8.0) 12/21/18 12:26 Ur Specific [place] 1.030 (1.010-1.035) 12/21/18 12:26 Urine Protein Negative (NEGATIVE) 12/21/18 12:26 Urine Glucose (UA) Negative (NEGATIVE) 12/21/18 12:26 Urine Ketones Trace (NEGATIVE) H 12/21/18 12:26 Urine Blood Negative (NEGATIVE) 12/21/18 12:26 Urine Nitrite Negative (NEGATIVE) 12/21/18 12:26 Urine Bilirubin Negative (NEGATIVE) 12/21/18 12:26 Urine Urobilinogen 0.2 mg/dL (0.2-1.0) 12/21/18 12:26 Ur Leukocyte Esterase Trace (NEGATIVE) 12/21/18 12:26 Urine WBC (Auto) 4 /hpf (0-5) 12/21/18 12:26 Urine Casts (Auto) 8 /lpf (0-8) 12/21/18 12:26 U Epithel Cells (Auto) 10.3 /HPF (0-5/HPF) 12/21/18 12:26 Urine Crystals (Auto) Oxalate /hpf 12/21/18 12:26 Urine Bacteria (Auto) 139.6 /hpf (NEGATIVE) 12/21/18 12:26 RPR Titer Nonreactive (NONREACTIVE) 12/21/18 07:45 lab noted low ca oscal Objective: 12/22/18 12:41 tired low energy tolerate food and fluid well Assessment: 12/22/18 12:43 alcohol withdrawal sx Plan: continue detox
[2018-12-22] MEDS: CALCIUM 250MG/VIT-D 125 UNITS 1 COMBO TABLET PO SCH ×2 (14:30→22:13)
[2018-12-22] MEDS: THIAMINE HCL 100 MG TABLET (FP) PO SCH (22:13)
[2018-12-22] MEDS: traZODone HCL 50 MG TABLET (FP) PO PRN (22:13)
[2018-12-22] MEDS: chlordiazePOXIDE HCL 10 MG CAPSULE PO SCH (22:13)
[2018-12-22] MEDS: VITAMINS A AND D TOPICAL OINTMENT 60 GM TUBE TP SCH ×2 (22:16→23:12)
[2018-12-22] MEDS ORDERED: chlordiazePOXIDE HCL 10 MG CAPSULE PO PRN (23:00)
[2018-12-23] MEDS: chlordiazePOXIDE HCL 10 MG CAPSULE PO SCH ×2 (06:03→10:23)
[2018-12-23] MEDS: VITAMINS A AND D TOPICAL OINTMENT 60 GM TUBE TP SCH ×2 (06:03→13:22)
[2018-12-23 09:22] VITALS: BP 88/63; PULSE 90; TEMP 96.7
[2018-12-23] MEDS: NICOTINE 14 MG/24 HOURS TOPICAL PATCH TD SCH (10:23)
[2018-12-23] MEDS: PRENATAL VITAMINS W/ FOLIC ACID TABLET (FP) PO SCH (10:23)
[2018-12-23] MEDS: CALCIUM 250MG/VIT-D 125 UNITS 1 COMBO TABLET PO SCH (10:23)
--- NOTE | 2018-12-23 12:13 | DS ---
[facility] Detox Discharge Summary Admission Date: 12/20/18 Discharge Date: 12/23/18 - History Present History: Alcohol Dependence Additional Comments: 38 years old female admitted on 12/20/18 for alcohol withdrawal stabilization feeling better today wants to go to rehab [facility] Physical Exam Results Vital Signs: Vital Signs Temperature 96.7 F L 12/23/18 09:22 Pulse Rate 90 12/23/18 09:22 Respiratory Rate 20 12/23/18 09:22 Blood Pressure 88/63 L 12/23/18 09:22 O2 Sat by Pulse Oximetry (%) Pertinent Admission Physical Exam Findings: alcohol withdrawal sx Laboratory Last Values WBC 4.5 K/mm3 (4.0-10.0) 12/21/18 08:00 RBC 3.83 M/mm3 (3.60-5.2) 12/21/18 08:00 Hgb 12.2 GM/dL (10.7-15.3) 12/21/18 08:00 Hct 37.0 % (32.4-45.2) 12/21/18 08:00 MCV 96.4 fl (80-96) H 12/21/18 08:00 MCH 31.8 pg (25.7-33.7) 12/21/18 08:00 MCHC 33.0 g/dl (32.0-36.0) 12/21/18 08:00 RDW 15.8 % (11.6-15.6) H 12/21/18 08:00 Plt Count 312 K/MM3 (134-434) 12/21/18 08:00 MPV 7.6 fl (7.5-11.1) 12/21/18 08:00 Sodium 144 mmol/L (136-145) 12/21/18 07:45 Potassium 4.2 mmol/L (3.5-5.1) 12/21/18 07:45 Chloride 112 mmol/L (98-107) H 12/21/18 07:45 Carbon Dioxide 28 mmol/L (21-32) 12/21/18 07:45 Anion Gap 4 MMOL/L (8-16) L 12/21/18 07:45 BUN 14 mg/dL (7-18) 12/21/18 07:45 Creatinine 0.9 mg/dL (0.55-1.3) 12/21/18 07:45 Creat Clearance w eGFR 70.85 (>60) 12/21/18 07:45 Random Glucose 83 mg/dL (74-106) 12/21/18 07:45 Calcium 7.9 mg/dL (8.5-10.1) L 12/21/18 07:45 Total Bilirubin 0.2 mg/dL (0.2-1) 12/21/18 07:45 AST 11 U/L (15-37) L 12/21/18 07:45 ALT 10 U/L (13-61) L 12/21/18 07:45 Alkaline Phosphatase 67 U/L (45-117) 12/21/18 07:45 Total Protein 5.9 g/dl (6.4-8.2) L 12/21/18 07:45 Albumin 2.9 g/dl (3.4-5.0) L 12/21/18 07:45 Urine Color Yellow 12/21/18 12:26 Urine Appearance Turbid 12/21/18 12:26 Urine pH 5.5 (5.0-8.0) 12/21/18 12:26 Ur Specific [place] 1.030 (1.010-1.035) 12/21/18 12:26 Urine Protein Negative (NEGATIVE) 12/21/18 12:26 Urine Glucose (UA) Negative (NEGATIVE) 12/21/18 12:26 Urine Ketones Trace (NEGATIVE) H 12/21/18 12:26 Urine Blood Negative (NEGATIVE) 12/21/18 12:26 Urine Nitrite Negative (NEGATIVE) 12/21/18 12:26 Urine Bilirubin Negative (NEGATIVE) 12/21/18 12:26 Urine Urobilinogen 0.2 mg/dL (0.2-1.0) 12/21/18 12:26 Ur Leukocyte Esterase Trace (NEGATIVE) 12/21/18 12:26 Urine WBC (Auto) 4 /hpf (0-5) 12/21/18 12:26 Urine Casts (Auto) 8 /lpf (0-8) 12/21/18 12:26 U Epithel Cells (Auto) 10.3 /HPF (0-5/HPF) 12/21/18 12:26 Urine Crystals (Auto) Oxalate /hpf 12/21/18 12:26 Urine Bacteria (Auto) 139.6 /hpf (NEGATIVE) 12/21/18 12:26 POC Urine HCG, Qual Negative 12/20/18 21:39 RPR Titer Nonreactive (NONREACTIVE) 12/21/18 07:45 lab noted - Treatment Hospital Course: Detox Protocol Followed, Detoxed Safely, Responded well, Discharged Condition Good, Rehab Referral Accepted Patient has Accepted a Rehab Referral to: [facility] - Medication Discharge Medications: Ambulatory Orders Haloperidol Decanoate [Haldol Decanoate (Long-Acting) -] 500 mg IM MONTHLY 10/28 - Diagnosis (1) Alcohol dependence with uncomplicated withdrawal Current Visit: Yes Status: Acute (2) Nicotine dependence Current Visit: Yes Status: Acute Qualifiers: Nicotine product type: cigarettes Substance use status: in withdrawal Qualified Code(s): F17.213 - Nicotine dependence, cigarettes, with withdrawal (3) Schizophrenia Current Visit: Yes Status: Suspected Qualifiers: Schizophrenia type: unspecified Qualified Code(s): F20.9 - Schizophrenia, unspecified (4) Weight loss Current Visit: Yes Status: Acute (5) GERD (gastroesophageal reflux disease) Current Visit: Yes Status: Chronic Qualifiers: Esophagitis presence: without esophagitis Qualified Code(s): K21.9 - Gastro -esophageal reflux disease without esophagitis - AMA Did Patient Leave Against Medical Advice: No
--- NOTE | 2018-12-23 13:25 | PN ---
[facility] Progress Note Note: Psychiatry Attending's note (follow-up) : Met with the patient. Discussion : haloperidol decanoate. Ms Warner allowed MD to contact ACT psychiatrist, Dr Cooley. At [phone]. History taken. Dose (100 mg IM monthly) : confirmed. Dr Ignacio states that injection was due last week. Information appreciated. Conversation with " Dr Alvarado " took place in the presence of the patient. Haldol decanoate 100 mg IM + cogentin 1 mg po to be dispensed on 12/24/18. Side effects/benefits discussed with patient. Ms warner is agreeable with this plan.
[2018-12-23] MEDS ORDERED: chlordiazePOXIDE HCL 10 MG CAPSULE PO SCH (23:00)
== END 2018-12-23 13:35 | disposition other institution (70) | DRG 774 ==
LOC: YASAS 16:51 → Y3N 23:17
PROVIDERS: ADMIT Neuromusculoskeletal Medicine & OMM; ATTEND Neuromusculoskeletal Medicine & OMM
PROC: HZ2ZZZZ Detoxification Services for Substance Abuse Treatment (ICD-10-PCS; principal; 2018-12-20)
DX: F10.230 Alcohol dependence with withdrawal, uncomplicated (principal); F14.20 Cocaine dependence, uncomplicated; F12.20 Cannabis dependence, uncomplicated; F17.213 Nicotine dependence, cigarettes, with withdrawal; F20.9 Schizophrenia, unspecified; F19.24 Other psychoactive substance dependence with psychoactive substance-induced mood disorder; E83.51 Hypocalcemia; K21.9 Gastro-esophageal reflux disease without esophagitis; G40.509 Epileptic seizures related to external causes, not intractable, without status epilepticus; R44.0 Auditory hallucinations; R63.4 Abnormal weight loss; Z68.20 Body mass index [BMI] 20.0-20.9, adult
CPT/HCPCS: 36415; 80053; 81003; 81025; 85027; 86593

== ENCOUNTER 2018-12-23 13:34 | Inpatient (IN) | payer OTHER ==
--- NOTE | 2018-12-23 12:18 | HP ---
[facility] Re[facility] Assess/Revision - Admission History Admitted to Rehab from: [facility] Date of Admission to Rehab: 12/23/18 - Findings Detox History & Physical reviewed: Yes Concur with findings: Yes Comments/Additional Findings: transferred from detox to rehab admission as per protocol Inpatient Rehab Admission - Rehab Decision to Admit Inpatient rehab admission?: Yes - Initial Determination Are CD services needed?: Yes Free of communicable disease: Yes Not in need of hospitalization: Yes - Rehab Admission Criteria Previous failed treatment: Yes Poor recovery environment: Yes Comorbidities: Yes Lacks judgement: No Patient is meeting Inpatient Rehab admission criteria:: Yes
[~2018-12-23 13:34] MED LIST: LOPERAMIDE HCL 2 MG CAPSULE PO PRN; MAG HYDROX/AL HYDROX/SIMETH 30 ML UNIT-DOSE CUP PO PRN; MAGNESIUM CITRATE 300 ML BOTTLE PO PRN; MAGNESIUM HYDROX 2400MG/30ML ORAL SUSPENSION 30 ML CUP PO PRN; MENTHOL/PHENOL 1 EACH UD MM PRN; NICOTINE 14 MG/24 HOURS TOPICAL PATCH TD PRN; P-EPHED 60MG/TRIPROLIDI 2.5MG TABLET PO PRN; guaiFENesin 200 MG/10 ML 10 ML UNIT-DOSE CUPS PO PRN
[2018-12-23] MEDS: GABAPENTIN 300 MG CAPSULE (FP) PO SCH ×2 (15:00→21:26)
[2018-12-23] MEDS: THIAMINE HCL 100 MG TABLET (FP) PO SCH (21:26)
[2018-12-23] MEDS: BENZTROPINE MESYLATE 1 MG TABLET (FP) PO SCH (21:27)
[2018-12-24] MEDS: GABAPENTIN 300 MG CAPSULE (FP) PO SCH ×3 (07:10→21:32)
--- NOTE | 2018-12-24 08:29 | CONSULT ---
[facility] Psychiatric Consult - Data Date of interview: 12/24/18 Admission source: 3N Identifying data: Ms Wraner is a 38 years old single Black female, unemployed receving SSI, homeless seeking rehab treatment for alcohol, cocaine and cannabis Substance Abuse History: Reports history of alcohol, crack cocaine and marijuana use. Refer to addiction counsselor's summary for further information Medical History: Significant for seizure disorder. Noted abrasions of the forehead (result of a fall, days ago, in the context of an ictal episode). Smokes 7 cigarettes daily Psychiatric History: Patient was seen recently on 12/21/[address] Benites while admitted to detox. She has an extensive history of psychiatric illness since her late 20's when she was diagnosed with Schizophrenia. She has had multiple psychiatric hospitalizations. She could not name any of the institutions but told Dr Benites:" I have been admitted all over ". She is under of Dr Ignacio from [facility] and she is prescribed Haldol Decanoate 100 mg IM for which she is over due. She denies history of suicide attempts but records at [facility] indicate a distant suicide attempt at age 25 (jump off of a bridge). At present , denies experiencing psychotic symptoms, S/H ideations. However, reports feeling depressed, anxious and sleeping poorly Physical/Sexual Abuse/Trauma History: Denies history of emotional, physica or sexual abuse as well as DV relationship Additional Comment: Denies criminal history Mental Status Exam - Mental Status Exam Alert and Oriented to: Time, Place, Person Cognitive Function: Fair Patient Appearance: Well Groomed Mood: Depressed, Anxious, Irritable Affect: Appropriate Speech Pattern: Clear Thought Process: Intact Thought Disorder: Not Present Hallucinations: Denies Suicidal Ideation: Denies Homicidal Ideation: Denies Insight/Judgement: Poor Sleep: Poorly Appetite: Good Muscle strength/Tone: Normal Gait/Station: Normal Psychiatric Findings - Problem List ([place] 1, 2,3) (1) Schizophrenia Current Visit: No Status: Chronic Qualifiers: Schizophrenia type: unspecified Qualified Code(s): F20.9 - Schizophrenia, unspecified Comment: On haloperidol decanoate. Dose not disclosed. Patient is followed by the [facility] team. (2) Substance induced mood disorder Current Visit: Yes Status: Acute (3) Substance-induced sleep disorder Current Visit: Yes Status: Acute (4) Nicotine dependence Current Visit: No Status: Chronic Qualifiers: Nicotine product type: cigarettes Substance use status: in withdrawal Qualified Code(s): F17.213 - Nicotine dependence, cigarettes, with withdrawal (5) Withdrawal seizures Current Visit: No Status: Chronic Qualifiers: Complication of substance-induced condition: uncomplicated Qualified Code(s ): F19.230 - Other psychoactive substance dependence with withdrawal, uncomplicated; R56.9 - Unspecified convulsions - Initial Treatment Plan Initial Treatment Plan: 1) Continue Cogentin 0.5 mg po BID. 2) Resume Haldol Decanoate 100 mg IM stat. 3) Continue inpatient rehabilitation
[2018-12-24] MEDS ORDERED: HALOPERIDOL DECANOATE 100 MG/ML IM ONE (09:37)
[2018-12-24] MEDS ORDERED: HALOPERIDOL DECANOATE 100 MG/ML IM SCH (09:45)
[2018-12-24] MEDS ORDERED: BENZTROPINE MESYLATE 1 MG TABLET (FP) PO SCH (10:00)
[2018-12-24] MEDS: PRENATAL VITAMINS W/ FOLIC ACID TABLET (FP) PO SCH (10:03)
[2018-12-24] MEDS: BENZTROPINE MESYLATE 1 MG TABLET (FP) PO SCH ×2 (10:26→21:32)
--- NOTE | 2018-12-24 15:54 | PN ---
[facility] Progress Note Note: PT IS A NEW PT WHO COMPLETED DETOX ON [facility] ON 12/23/18. PT HAS HEALING SUTURED SCARS ON FOREHEAD BEFORE ARRIVING HERE FOR DETOX. REPORTS SHE HAD A SEIZURE AND SUSTAINED INJURY. STATES WAS TOLD SUTURES WERE DISSOLVABLE TYPE. PT IS ALERT O X 3. Vital Signs - 24 hr 12/24/18 12/24/18 12/24/18 01:07 03:30 07:09 Temperature 97.7 F Pulse Rate 77 Respiratory 18 18 18 Rate Blood Pressure 87/59 L HEAD:NORMOCEPHALIC FOREHEAD: SUTURE AREA CLEAN, NO DRAINAGE OR SWELLING AND HEALING. PLAN:BACITRACIN OINTMENT DIRECTED. STAFF TO MONITOR HEALING PROGRESS.
[2018-12-24] MEDS: IBUPROFEN 400 MG TABLET (FP) PO PRN (17:23)
[2018-12-24] MEDS: NICOTINE POLACRILEX 2 MG GUM BUC PRN (18:33)
[2018-12-24] MEDS: THIAMINE HCL 100 MG TABLET (FP) PO SCH (21:32)
[2018-12-24] MEDS: MELATONIN 5 MG TABLETS PO PRN (21:32)
[2018-12-24] MEDS: BACITRACIN 0.9 GM PACKET TP SCH (21:33)
[2018-12-25] MEDS: GABAPENTIN 300 MG CAPSULE (FP) PO SCH ×3 (07:47→21:57)
[2018-12-25] MEDS: BACITRACIN 0.9 GM PACKET TP SCH ×2 (10:38→21:16)
[2018-12-25] MEDS: PRENATAL VITAMINS W/ FOLIC ACID TABLET (FP) PO SCH (10:38)
[2018-12-25] MEDS: BENZTROPINE MESYLATE 1 MG TABLET (FP) PO SCH ×2 (10:38→21:17)
[2018-12-25] MEDS: NICOTINE POLACRILEX 2 MG GUM BUC PRN ×2 (13:36→19:09)
[2018-12-25] MEDS: ACETAMINOPHEN 325 MG TABLET (FP) PO PRN ×2 (15:28→21:15)
[2018-12-25] MEDS: IBUPROFEN 400 MG TABLET (FP) PO PRN (19:47)
[2018-12-25] MEDS: THIAMINE HCL 100 MG TABLET (FP) PO SCH (21:18)
[2018-12-26] MEDS: GABAPENTIN 300 MG CAPSULE (FP) PO SCH ×3 (08:03→21:36)
[2018-12-26] MEDS: BACITRACIN 0.9 GM PACKET TP SCH ×2 (09:49→21:36)
[2018-12-26] MEDS: BENZTROPINE MESYLATE 1 MG TABLET (FP) PO SCH ×2 (09:49→21:37)
[2018-12-26] MEDS: PRENATAL VITAMINS W/ FOLIC ACID TABLET (FP) PO SCH (09:49)
[2018-12-26] MEDS: NICOTINE POLACRILEX 2 MG GUM BUC PRN (13:29)
[2018-12-26] MEDS: THIAMINE HCL 100 MG TABLET (FP) PO SCH (21:36)
[2018-12-26] MEDS: MELATONIN 5 MG TABLETS PO PRN (21:38)
[2018-12-27] MEDS: GABAPENTIN 300 MG CAPSULE (FP) PO SCH ×3 (06:50→21:06)
[2018-12-27] MEDS: BENZTROPINE MESYLATE 1 MG TABLET (FP) PO SCH ×2 (09:46→21:06)
[2018-12-27] MEDS: PRENATAL VITAMINS W/ FOLIC ACID TABLET (FP) PO SCH (09:46)
[2018-12-27] MEDS: BACITRACIN 0.9 GM PACKET TP SCH ×2 (09:46→21:06)
[2018-12-27] MEDS: NICOTINE POLACRILEX 2 MG GUM BUC PRN ×3 (14:52→21:07)
[2018-12-27] MEDS: ACETAMINOPHEN 325 MG TABLET (FP) PO PRN (16:46)
[2018-12-27] MEDS: THIAMINE HCL 100 MG TABLET (FP) PO SCH (21:07)
[2018-12-27] MEDS: MELATONIN 5 MG TABLETS PO PRN (21:07)
[2018-12-28] MEDS: GABAPENTIN 300 MG CAPSULE (FP) PO SCH ×3 (07:42→23:04)
[2018-12-28] MEDS: PRENATAL VITAMINS W/ FOLIC ACID TABLET (FP) PO SCH (09:54)
[2018-12-28] MEDS: BENZTROPINE MESYLATE 1 MG TABLET (FP) PO SCH ×2 (09:54→23:04)
[2018-12-28] MEDS: BACITRACIN 0.9 GM PACKET TP SCH ×2 (09:54→23:04)
[2018-12-28] MEDS: NICOTINE POLACRILEX 2 MG GUM BUC PRN ×2 (12:49→18:06)
[2018-12-28] MEDS: THIAMINE HCL 100 MG TABLET (FP) PO SCH (23:04)
[2018-12-29] MEDS: MELATONIN 5 MG TABLETS PO PRN ×2 (02:58→21:36)
[2018-12-29] MEDS: GABAPENTIN 300 MG CAPSULE (FP) PO SCH ×3 (05:03→21:36)
[2018-12-29] MEDS: BACITRACIN 0.9 GM PACKET TP SCH ×2 (10:09→21:35)
[2018-12-29] MEDS: PRENATAL VITAMINS W/ FOLIC ACID TABLET (FP) PO SCH (10:09)
[2018-12-29] MEDS: BENZTROPINE MESYLATE 1 MG TABLET (FP) PO SCH ×2 (10:09→21:36)
[2018-12-29] MEDS: NICOTINE POLACRILEX 2 MG GUM BUC PRN (10:09)
[2018-12-29] MEDS: ACETAMINOPHEN 325 MG TABLET (FP) PO PRN (16:21)
[2018-12-29] MEDS: THIAMINE HCL 100 MG TABLET (FP) PO SCH (21:35)
[2018-12-30] MEDS: GABAPENTIN 300 MG CAPSULE (FP) PO SCH ×3 (06:37→21:35)
[2018-12-30] MEDS: PRENATAL VITAMINS W/ FOLIC ACID TABLET (FP) PO SCH (09:23)
[2018-12-30] MEDS: BACITRACIN 0.9 GM PACKET TP SCH ×2 (09:23→21:35)
[2018-12-30] MEDS: BENZTROPINE MESYLATE 1 MG TABLET (FP) PO SCH ×2 (09:24→21:36)
[2018-12-30] MEDS: ACETAMINOPHEN 325 MG TABLET (FP) PO PRN ×2 (09:29→15:38)
[2018-12-30] MEDS: NICOTINE POLACRILEX 2 MG GUM BUC PRN (17:21)
[2018-12-30] MEDS: THIAMINE HCL 100 MG TABLET (FP) PO SCH (21:35)
[2018-12-30] MEDS: MELATONIN 5 MG TABLETS PO PRN (21:35)
[2018-12-31] MEDS: GABAPENTIN 300 MG CAPSULE (FP) PO SCH ×3 (06:43→22:07)
[2018-12-31] MEDS: PRENATAL VITAMINS W/ FOLIC ACID TABLET (FP) PO SCH (09:37)
[2018-12-31] MEDS: BACITRACIN 0.9 GM PACKET TP SCH ×2 (09:37→22:07)
[2018-12-31] MEDS: BENZTROPINE MESYLATE 1 MG TABLET (FP) PO SCH ×2 (09:37→22:07)
[2018-12-31] MEDS: ACETAMINOPHEN 325 MG TABLET (FP) PO PRN (14:52)
[2018-12-31] MEDS: THIAMINE HCL 100 MG TABLET (FP) PO SCH (22:08)
[2018-12-31] MEDS: MELATONIN 5 MG TABLETS PO PRN (22:08)
[2019-01-01] MEDS: GABAPENTIN 300 MG CAPSULE (FP) PO SCH ×3 (06:41→21:03)
[2019-01-01] MEDS: ACETAMINOPHEN 325 MG TABLET (FP) PO PRN ×2 (08:56→15:00)
[2019-01-01] MEDS: BACITRACIN 0.9 GM PACKET TP SCH ×2 (09:46→21:04)
[2019-01-01] MEDS: PRENATAL VITAMINS W/ FOLIC ACID TABLET (FP) PO SCH (09:46)
[2019-01-01] MEDS: BENZTROPINE MESYLATE 1 MG TABLET (FP) PO SCH ×2 (09:47→21:03)
--- NOTE | 2019-01-01 11:18 | PN ---
S Progress Note Note: Patient reports sleeping poorly despite taking Melatonin 5 mg at bedtime. Will order Belsomra 10 mg po HS prn for insomnia. Indications and propterties of medication discussed with patient
[2019-01-01] MEDS: NICOTINE POLACRILEX 2 MG GUM BUC PRN (17:54)
[2019-01-01] MEDS: IBUPROFEN 400 MG TABLET (FP) PO PRN (18:10)
[2019-01-01] MEDS: THIAMINE HCL 100 MG TABLET (FP) PO SCH (21:04)
[2019-01-01] MEDS: SUVOREXANT 10 MG TABLET PO PRN (21:06)
[2019-01-02] MEDS: GABAPENTIN 300 MG CAPSULE (FP) PO SCH ×3 (06:37→21:44)
[2019-01-02] MEDS: IBUPROFEN 400 MG TABLET (FP) PO PRN ×2 (08:57→18:52)
[2019-01-02] MEDS: BENZTROPINE MESYLATE 1 MG TABLET (FP) PO SCH ×2 (09:00→21:45)
[2019-01-02] MEDS: PRENATAL VITAMINS W/ FOLIC ACID TABLET (FP) PO SCH (09:00)
[2019-01-02] MEDS: BACITRACIN 0.9 GM PACKET TP SCH ×2 (09:00→21:44)
[2019-01-02] MEDS: ACETAMINOPHEN 325 MG TABLET (FP) PO PRN (15:02)
--- NOTE | 2019-01-02 15:22 | PN ---
S Progress Note Note: PT HAD 2 AREAS OF STITCHES ON HER FOREHEAD ON ADMISSION WHICH IS REPORTS WAS FROM A FALL DUE TO SEIZURE. PT WAS NOT ABLE TO REMEMBER WHEN STITCHES WERE DONE OR WHEN TOLD TO COME BACK TO TAKE THEM OUT. SKIN AREA APPEARS HEALED OVER SOME STITCHES. PT NOW REQUESTING TO TAKE OUT THE STITCHES. D/W PT THIS CREDIT RISK MODELER WITH NURSE JESUS VARGAS WILL BE PRESENT TO ASSIST. Vital Signs - 24 hr 01/02/19 01/02/19 01/02/19 00:30 03:30 06:53 Temperature 97.7 F Pulse Rate 71 Respiratory 16 16 18 Rate Blood Pressure 103/72 FOREHEAD:STITCHES TAKING OUT WITH STITCH REMOVAL KIT. UNABLE TO COUNT NUMBER OF STITCHES SOME WERE ALREADY REMOVED OR FELL OFF. SKIN INTACT, NO DRAINAGE OR OPEN . A:S/P SUTURES PLAN:CLEANED WITH BETADINE SWAB BACITRACIN OINTMENT APPLY DIRECTED.
[2019-01-02] MEDS: THIAMINE HCL 100 MG TABLET (FP) PO SCH (21:44)
[2019-01-02] MEDS: SUVOREXANT 10 MG TABLET PO PRN (21:45)
[2019-01-03 06:34] VITALS: TEMP 97.8
[2019-01-03] MEDS: GABAPENTIN 300 MG CAPSULE (FP) PO SCH ×3 (07:49→22:05)
[2019-01-03] MEDS: IBUPROFEN 400 MG TABLET (FP) PO PRN ×2 (08:55→17:49)
[2019-01-03] MEDS: BENZTROPINE MESYLATE 1 MG TABLET (FP) PO SCH ×2 (09:34→22:05)
[2019-01-03] MEDS: PRENATAL VITAMINS W/ FOLIC ACID TABLET (FP) PO SCH (09:34)
[2019-01-03] MEDS: BACITRACIN 0.9 GM PACKET TP SCH ×2 (10:08→23:44)
[2019-01-03] MEDS: ACETAMINOPHEN 325 MG TABLET (FP) PO PRN ×2 (14:22→22:06)
[2019-01-03] MEDS: NICOTINE POLACRILEX 2 MG GUM BUC PRN (17:54)
[2019-01-03] MEDS: THIAMINE HCL 100 MG TABLET (FP) PO SCH (22:05)
[2019-01-03] MEDS: SUVOREXANT 10 MG TABLET PO PRN (22:09)
[2019-01-04] MEDS: GABAPENTIN 300 MG CAPSULE (FP) PO SCH ×3 (07:42→21:02)
[2019-01-04 07:45] VITALS: BP 99/66; PULSE 85
[2019-01-04] MEDS: PRENATAL VITAMINS W/ FOLIC ACID TABLET (FP) PO SCH (09:27)
[2019-01-04] MEDS: BACITRACIN 0.9 GM PACKET TP SCH ×2 (09:27→21:03)
[2019-01-04] MEDS: BENZTROPINE MESYLATE 1 MG TABLET (FP) PO SCH ×2 (09:27→21:02)
[2019-01-04] MEDS: IBUPROFEN 400 MG TABLET (FP) PO PRN ×2 (09:28→17:01)
[2019-01-04] MEDS: NICOTINE POLACRILEX 2 MG GUM BUC PRN (14:33)
--- NOTE | 2019-01-04 17:42 | PN ---
[facility] Progress Note Note: Psychiatry Attending's note (follow-up) : Asked to re-evaluate this patient who insisted on seeing psychiatrist. Reason : complaint of insomnia. NOT supported or corroborated by nursing staff. Nurses Lydia Carroll report that this patient sleeps soundly at night. There is no indication for addition / dose increase of medications. Additional issue : report of threat to harm others, by nursing home social worker Rosas Chávez. Ms Chávez's brief note of 01/03/19 : read and appreciated. Case discussed with nurse Carly. Chart reviewed. Met with the patient. Ms Warner is already known to MD. Patient is noted as medication-seeking, disorganized and intrusive. Alleged threats revisited. Patient denies. " I am fine. I don't have thoughts to hurt people. Please, I don't want to leave this program ". Patient denies hallucinations. Mildly suspicious of others. Moderately anxious. Manageable. Ms Warner is NOT a a danger to self or others at time of this intervention. Noted as improved. Patient is alert and fully oriented. Cooperative with process description writer. Receptive to redirections. Baseline. Support and reassurance provided in this session. Patient responded favorably to this intervention.
[2019-01-04] MEDS: ACETAMINOPHEN 325 MG TABLET (FP) PO PRN (19:40)
[2019-01-04] MEDS: THIAMINE HCL 100 MG TABLET (FP) PO SCH (21:03)
[2019-01-04] MEDS: SUVOREXANT 10 MG TABLET PO PRN (21:03)
[2019-01-05] MEDS: GABAPENTIN 300 MG CAPSULE (FP) PO SCH ×3 (07:43→21:32)
[2019-01-05] MEDS: PRENATAL VITAMINS W/ FOLIC ACID TABLET (FP) PO SCH (09:32)
[2019-01-05] MEDS: BENZTROPINE MESYLATE 1 MG TABLET (FP) PO SCH ×2 (09:32→21:32)
[2019-01-05] MEDS: BACITRACIN 0.9 GM PACKET TP SCH ×2 (09:32→21:32)
[2019-01-05] MEDS: ACETAMINOPHEN 325 MG TABLET (FP) PO PRN ×2 (09:33→21:33)
[2019-01-05] MEDS: THIAMINE HCL 100 MG TABLET (FP) PO SCH (21:32)
[2019-01-05] MEDS ORDERED: MELATONIN 5 MG TABLETS PO PRN (22:13)
[2019-01-06] MEDS ORDERED: diphenhydrAMINE HCL 25 MG CAPSULE (FP) PO PRN (00:16)
[2019-01-06] MEDS: GABAPENTIN 300 MG CAPSULE (FP) PO SCH (07:30)
--- NOTE | 2019-01-06 08:56 | PN ---
S Progress Note Note: Psychiatric nurse practitioner note: Patient scheduled for discharge today. A 30 day script of cogentin 0.5mg BID (# 60 tablets) was sent to [facility] at [address] [place] [address].
[2019-01-06] MEDS: BENZTROPINE MESYLATE 1 MG TABLET (FP) PO SCH (09:10)
[2019-01-06] MEDS: BACITRACIN 0.9 GM PACKET TP SCH (09:10)
[2019-01-06] MEDS: PRENATAL VITAMINS W/ FOLIC ACID TABLET (FP) PO SCH (09:10)
--- NOTE | 2019-01-06 12:27 | PN ---
S Progress Note Note: REHAB DISCHARGE NOTE: PATIENT SCHEDULED FOR DISCHARGE TODAY FROM REHAB. AFTERCARE ARRANGED FOR URBAN PATHWAY TODAY AT 11AM. PATIENT ENCOURAGED TO ATTEND GROUP MEETINGS AND TO COMPLETE REHAB TREATMENT TO PREVENT RELAPSE. PATIENT MEDICALLY STABLE AND DENIES SI/HI AT TIME OF DISCHARGE. PATIENT ALSO STRONGLY ADVISED TO FOLLOW UP WITH PCP TO CONTINUE MEDICAL MANAGEMENT/FOLLOW UP. DISCHARGE INSTRUCTIONS GIVEN TO PATIENT BY NURSING STAFF. Vital Signs Temperature 97.8 F 01/04/19 07:45 Pulse Rate 85 01/04/19 07:45 Respiratory Rate 16 01/06/19 03:30 Blood Pressure 99/66 01/04/19 07:45 O2 Sat by Pulse Oximetry (%) Laboratory Tests 12/24/18 12/26/18 07:30 07:00 Potassium 4.3 HIV 1&2 Antibody Screen Negative HIV P24 Antigen Negative Home Medications Medication Instructions Recorded Haloperidol Decanoate [Haldol 500 mg IM MONTHLY 10/28/18 Decanoate (Long-Acting) -] Benztropine Mesylate [Cogentin -] 0.5 mg PO BID #60 tablet 01/06/19 Gabapentin [Neurontin -] 300 mg PO Q8H #21 capsule 01/06/19 Melatonin 10 mg PO HS #14 capsule 01/06/19
== END 2019-01-06 09:22 | disposition home or self-care (01) | DRG 772 ==
LOC: YASAS 13:34 → Y3E 13:35
PROVIDERS: ADMIT Neuromusculoskeletal Medicine & OMM; ATTEND Neuromusculoskeletal Medicine & OMM
PROC: HZ42ZZZ Group Counseling for Substance Abuse Treatment, Cognitive-Behavioral (ICD-10-PCS; principal; 2018-12-23)
DX: F10.20 Alcohol dependence, uncomplicated (principal); F14.20 Cocaine dependence, uncomplicated; F12.20 Cannabis dependence, uncomplicated; F17.210 Nicotine dependence, cigarettes, uncomplicated; F19.24 Other psychoactive substance dependence with psychoactive substance-induced mood disorder; F19.282 Other psychoactive substance dependence with psychoactive substance-induced sleep disorder; F20.9 Schizophrenia, unspecified; G40.509 Epileptic seizures related to external causes, not intractable, without status epilepticus; K21.9 Gastro-esophageal reflux disease without esophagitis; Z48.02 Encounter for removal of sutures
CPT/HCPCS: 36415; 84132; 87389

== ENCOUNTER 2019-04-03 08:51 | Inpatient (IN) | payer OTHER ==
[2019-04-03 09:11] VITALS: BMI 18.3
--- NOTE | 2019-04-03 09:56 | HP ---
CIWA Score Nausea/Vomitin Muscle Tremors: 3 Anxiety: 3 Agitation: 2 Paroxysmal Sweats: 1-Minimal Palms Moist Orientation: 0-Oriented Tacttile Disturbances: 1-Very Mild Itch/Numbness Auditory Disturbances: 0-None Visual Disturbances: 0-None Headache: 2-Mild CIWA-Ar Total Score: 14 - Admission Criteria [facility] Guidelines: Admission for Medically Managed Detox: Requires at least one of the followin. CIWA greater than 12 2. Seizures within the past 24 hours 3. Delirium tremens within the past 24 hours 4. Hallucinations within the past 24 hours 5. Acute intervention needed for co occurring medical disorder 6. Acute intervention needed for co occurring psychiatric disorder 7. Severe withdrawal that cannot be handled at a lower level of care (continued vomiting, continued diarrhea, abnormal vital signs) requiring intravenous medication and/or fluids 8. Admission ROS S - [facility] Chief Complaint: i need help to stop drinking alcohol and cocaine Allergies/Adverse Reactions: Allergies Allergy/AdvReac Type Severity Reaction Status Date / Time No Known Drug Allergies Allergy Verified 04/03/19 08:57 History of Present Illness: this 39 years old female with alcohol and cocaine dependence,seeking detox, withdrawal symptom, multiple admissions in detox and rehab,last detox [facility] 12/20/18 to 12/23/18 last rehab 12/23/18 to 01/06/19 alcohol related seizure last 1 week ago weight loss nicotine dependence 3 cigarette/day,does not need nicotine replcement no significant period of sobriety plan to go to rehab after detox history of schizophrenia - Ebola screening Have you traveled outside of the country in the last 21 days: No Have you had contact with anyone from an Ebola affected area: No - Review of Systems Constitutional: Loss of Appetite, Malaise, Night Sweats, Changes in sleep, Weakness, Unintentional Wgt. Loss EENT: reports: Tearing, Nose Congestion Respiratory: reports: No Symptoms reported Cardiac: reports: No Symptoms Reported GI: reports: Diarrhea, Nausea, Poor Appetite, Vomiting, Abdominal cramping : reports: No Symptoms Reported Musculoskeletal: reports: Back Pain, Muscle Pain Integumentary: reports: Dryness Neuro: reports: Headache, Tremors Endocrine: reports: No Symptoms Reported Hematology: reports: No Symptoms Reported Psychiatric: reports: No Sypmtoms Reported, Judgement Intact, Mood/Affect Appropiate, Orientated x3 Other Systems: Reviewed and Negative Patient History - Patient Medical History Hx Anemia: No Hx Asthma: No Hx Chronic Obstructive Pulmonary Disease (COPD): No Hx Cancer: No Hx Cardiac Disorders: No Hx Congestive Heart Failure: No Hx Hypertension: No Hx Hypercholesterolemia: No Hx Pacemaker: No HX Cerebrovascular Accident: No Hx Seizures: Yes (R/O alcohol a few days ago) Hx Dementia: No Hx Diabetes: No Hx Gastrointestinal Disorders: No Hx Liver Disease: No Hx Genitourinary Disorders: No Hx Sexually Transmitted Disorders: No Hx Renal Disease (ESRD): No Hx Thyroid Disease: No Hx Human Immunodeficiency Virus (HIV): No (2018 ng) Hx Hepatitis C: No Hx Depression: No Hx Suicide Attempt: No Hx Bipolar Disorder: Yes Hx Schizophrenia: Yes - Patient Surgical History Past Surgical History: No Hx Neurologic Surgery: No Hx Cataract Extraction: No Hx Cardiac Surgery: No Hx Lung Surgery: No Hx Breast Surgery: No Hx Breast Biopsy: No Hx Abdominal Surgery: No Hx Appendectomy: No Hx Cholecystectomy: No Hx Genitourinary Surgery: No Hx Section: No Hx Orthopedic Surgery: No Hx Hysterectomy: No Anesthesia Reaction: No - PPD History Previous Implant?: Yes Documented Results: Negative w/proof Implanted On Prior [facility] Admission?: Yes Date: 10/30/18 Results: 0mm PPD to be Administered?: No - Reproductive History Patient is a Female of Child Bearing Age (11 -55 yrs old): Yes Last Menstrual Period: 02/25/18 Patient : No - Smoking Cessation Smoking history: Current every day smoker Have you smoked in the past 12 months: Yes Aproximately how many cigarettes per day: 3 Cigars Per Day: 0 Hx Chewing Tobacco Use: No Initiated information on smoking cessation: Yes 'Breaking Loose' booklet given: 04/03/19 - Substance & Tx. History Hx Alcohol Use: Yes Hx Substance Use: Yes Substance Use Type: Alcohol, Cocaine, Marijuana Hx Substance Use Treatment: Yes ([facility] 12/20/18 to 12/23/18 rehab 12/23/18 to ) - Substances abused Alcohol Substance route: Oral Frequency: Daily Amount used: 1PINT OF VODKA Age of first use: 21 Date of last use: 04/02/19 Crack Substance route: Smoking Frequency: Daily Amount used: 0.5 g Age of first use: 24 Date of last use: 04/02/19 Marijuana/Hashish Substance route: Oral Frequency: No use in 30 days Amount used: 1 JOINT Age of first use: 21 Date of last use: 12/19/18 Family Disease History - Family Disease History Family Disease History: [place]: Grandparent, Other: Father (depression), Mother ( alcoholic) Admission Physical Exam [facility] - Vital Signs Vital Signs: Vital Signs - 24 hr 04/03/19 08:56 Temperature 97.7 F Pulse Rate 83 Respiratory 18 Rate Blood Pressure 122/88 - Physical General Appearance: Yes: Moderate Distress, Tremorous, Irritable, Sweating, Anxious HEENTM: Yes: Normal ENT Inspection, JV, Pharynx Normal Respiratory: Yes: Lungs Clear, Normal Breath Sounds, No Respiratory Distress Neck: Yes: Within Normal Limits, Supple, Trachea in good position Breast: Yes: Breast Exam Deferred Cardiology: Yes: Within Normal Limits, Regular Rhythm, Regular Rate, S1, S2 Abdominal: Yes: Normal Bowel Sounds, Soft, Organomegaly Genitourinary: Yes: Within Normal Limits Back: Yes: Muscle Spasm Musculoskeletal: Yes: full range of Motion, Back pain, Muscle Pain Extremities: Yes: Within Normal Limits, Normal Range of Motion, Tremors Neurological: Yes: full service vending driver II-XII NML intact, Alert, Motor Strength 5/5 Integumentary: Yes: Dry Lymphatic: Yes: Within Normal Limits - Diagnostic (1) Alcohol dependence with uncomplicated withdrawal Current Visit: No Status: Acute (2) Alcohol related seizure Current Visit: Yes Status: Acute (3) Weight loss Current Visit: No Status: Acute (4) Cannabis dependence Current Visit: No Status: Chronic (5) Nicotine dependence Current Visit: No Status: Chronic Qualifiers: Nicotine product type: cigarettes Substance use status: uncomplicated Qualified Code(s): F17.210 - Nicotine dependence, cigarettes, uncomplicated (6) Schizophrenia Current Visit: No Status: Chronic Qualifiers: Schizophrenia type: unspecified Qualified Code(s): F20.9 - Schizophrenia, unspecified Comment: On haloperidol decanoate. Dose not disclosed. Patient is followed by the [facility] team. Cleared for Admission [facility] - Detox or Rehab [facility] Level of Care: Medically Managed Detox Regimen/Protocol: Librium Breathalyzer - Breathalyzer Breathalyzer: 0 Urine Drug Screen - Test Device Lot number: [id number] Expiration date: 12/18/19 - Control Is test valid?: Yes - Results Drug screen NEGATIVE: No Urine drug screen results: JUAN ALBERTO-Cocaine Inpatient Rehab Admission - Rehab Decision to Admit Inpatient rehab admission?: No
[2019-04-03] MEDS ORDERED: MAGNESIUM CITRATE 300 ML BOTTLE PO PRN (10:05)
[2019-04-03] MEDS ORDERED: MAGNESIUM HYDROX 2400MG/30ML ORAL SUSPENSION 30 ML CUP PO PRN (10:05)
[2019-04-03] MEDS ORDERED: IBUPROFEN 400 MG TABLET (FP) PO PRN (10:05)
[2019-04-03] MEDS ORDERED: BISMUTH SUBSALICYLATE 262 MG/15 ML BTL PO PRN (10:05)
[2019-04-03] MEDS ORDERED: MAG HYDROX/AL HYDROX/SIMETH 30 ML UNIT-DOSE CUP PO PRN (10:05)
[2019-04-03] MEDS ORDERED: ACETAMINOPHEN 325 MG TABLET (FP) PO PRN (10:05)
[2019-04-03] MEDS ORDERED: MENTHOL/PHENOL 1 EACH UD MM PRN (10:05)
[2019-04-03] MEDS: chlordiazePOXIDE HCL 25 MG CAPSULE PO SCH ×3 (11:58→22:31)
[2019-04-03 12:42] LABS: HEMATOCRIT 39.5 % (32.4-45.2); HEMOGLOBIN 12.9 GM/dL (10.7-15.3); MCH 31.6 pg (25.7-33.7); MCHC 32.7 g/dl (32.0-36.0); MEAN CELL VOLUME 96.4 fl (80-96); MEAN PLT VOLUME 7.3 fl (7.5-11.1); PLATELET COUNT 374 K/MM3 (134-434); RDW 15.7 % (11.6-15.6); WHITE BLOOD COUNT 6.2 K/mm3 (4.0-10.0)
[2019-04-03 12:50] LABS: ALBUMIN 3.2 g/dl (3.4-5.0); BILIRUBIN,TOTAL 0.5 mg/dL (0.2-1); BLOOD UREA NITROGEN 10.5 mg/dL (7-18); CALCIUM 8.8 mg/dL (8.5-10.1); POTASSIUM 4.8 mmol/L (3.5-5.1); TOT PROT 6.7 g/dl (6.4-8.2)
[2019-04-03] MEDS: chlordiazePOXIDE HCL 25 MG CAPSULE PO PRN (18:06)
[2019-04-03] MEDS: THIAMINE HCL 100 MG TABLET (FP) PO SCH (22:31)
[2019-04-03] MEDS: MELATONIN 5 MG TABLETS PO PRN (22:31)
[2019-04-04] MEDS: chlordiazePOXIDE HCL 25 MG CAPSULE PO SCH ×4 (05:49→22:26)
[2019-04-04] MEDS: PRENATAL VITAMINS W/ FOLIC ACID TABLET (FP) PO SCH (10:52)
--- NOTE | 2019-04-04 11:46 | PN ---
S CIWA - CIWA Score Nausea/Vomitin Muscle Tremors: 2 Anxiety: 2 Agitation: 3 Paroxysmal Sweats: 1-Minimal Palms Moist Orientation: 0-Oriented Tacttile Disturbances: 0-None Auditory Disturbances: 0-None Visual Disturbances: 0-None Headache: 2-Mild CIWA-Ar Total Score: 13 S Progress Note (SOAP) Subjective: Patient is very anxious, somewhat agitated, and having nausea and some restlessness. Objective: 04/04/19 11:44 Vitals: BP: 104/72 P:83 R:20 T:98F 39 years old female with alcohol and cocaine dependence,seeking detox, withdrawal symptom, multiple admissions in detox and rehab,last detox [facility] 12/20/18 to 12/23/18 last rehab 12/23/18 to 01/06/19 alcohol related seizure last 1 week ago weight loss nicotine dependence 3 cigarette/day,does not need nicotine replcement no significant period of sobriety plan to go to rehab after detox history of schizophrenia 04/04/19 11:45 04/04/19 11:46 Abnormal Lab Results 04/03/19 04/03/19 10:00 10:00 MCV 96.4 H RDW 15.7 H MPV 7.3 L Chloride 110 H Anion Gap 4 L AST 11 L Albumin 3.2 L Assessment: 04/04/19 11:45 1. Alcohol Dependence with withdrawals: 2. Macrocytic Anemia 3. Hyperchloremia and Low anion Gap 4. Abnormalities in LFT and Albumin 04/04/19 11:47 Plan: 1. Alcohol Dependence: Continue detox protocol. Encourage PO fluids. 2. Macrocytic anemia: Consistent with poor nutrition and alcohol consumption She is on supplements for thiamine and folate. 3. Hyperchloremia and Low Anion Gap: Consistent with diarrhea and vommitting from withdrawal symptoms Encourage diet and nutrition during detox stay. 4. Abnormalities in AST: consistent with alcohol consumption Education given with regards to consequences of alcohol on liver, including cirrhosis and fatty liver disease. Low albumin reflects the patient state of poor nutrition. Will order ensure to diet. Dr. Knight
--- NOTE | 2019-04-04 14:14 | CONSULT ---
[facility] Psychiatric Consult - Data Date of interview: 04/04/19 Admission source: [facility] Identifying data: Readmission to [facility] for this 39 y/o AA female self- referred for detoxification (cocaine, cannabis, alcohol). Patient is single, no children, homeless, unemployed and supported on SSI benefits. Substance Abuse History: Confirmed by patient in this session. Details in current [facility] report as follows : Smoking history: Current every day smoker. Have you smoked in the past 12 months: Yes. Aproximately how many cigarettes per day: 3. Cigars Per Day: 0. Hx Chewing Tobacco Use: No. Initiated information on smoking cessation: Yes. 'Breaking Loose' booklet given: . - Substance & Tx. History. Hx Alcohol Use: Yes. Hx Substance Use: Yes. Substance Use Type: Alcohol, Cocaine, Marijuana. Hx Substance Use Treatment: Yes ([facility] 12/20/18 to 12/23/18 rehab 12/23/18 to 01/06/19). - Substances abused. Alcohol. Substance route: Oral. Frequency: Daily. Amount used: 1PINT OF VODKA. Age of first use: 21. Date of last use: 04/02/19. Crack. Substance route: Smoking. Frequency: Daily. Amount used: 0.5 g. Age of first use: 24. Date of last use: 04/02/19. Marijuana/Hashish. Substance route: Oral. Frequency: No use in 30 days. Amount used: 1 JOINT. Age of first use: 21. Date of last use: 12/19/18 Medical History: Seizure disorder. Psychiatric History: Patient is moderately sedated by current medications. She is not able to provide a comprehensive longitudinal history. Personal data are taken from records : extensive history of psychiatric illness (onset in late 20' s). Diagnosed with Schizophrenia. History of multiple psychiatric hospitalizations. Already known history of maintenance on haloperidol decanoate (dose not recalled by patient). Monthly follow-up with the [facility] team. History of suicide attempt at age 25 (jump off of a bridge). Physical/Sexual Abuse/Trauma History: Not discussed. Patient is falling asleep during psychiatric interview. Additional Comment: Urine drug screen results: JUAN ALBERTO-Cocaine. Noted. Mental Status Exam - Mental Status Exam Alert and Oriented to: Place, Person Cognitive Function: Impaired (moderately sedated) Patient Appearance: Unkempt, Disheveled Mood: Withdrawn Affect: Mood Congruent, Constricted Patient Behavior: Sedated, Fatigued Speech Pattern: Delayed, Slurred, Garbled Voice Loudness: Moderately Soft/Quiet Thought Process: Disorganized, Disoriented Thought Disorder: Bizarre Hallucinations: Denies Suicidal Ideation: Denies Homicidal Ideation: Denies Insight/Judgement: Poor Sleep: Well Appetite: Fair Gait/Station: Other (slow and unsteady gait) Psychiatric Findings - Problem List ([place] 1, 2,3) (1) Schizophrenia Current Visit: Yes Status: Chronic Qualifiers: Schizophrenia type: unspecified Qualified Code(s): F20.9 - Schizophrenia, unspecified Comment: On haloperidol decanoate. Dose not disclosed. Patient is followed by the [facility] team. (2) Alcohol dependence with uncomplicated withdrawal Current Visit: Yes Status: Acute (3) Cocaine dependence, uncomplicated Current Visit: Yes Status: Chronic (4) Nicotine dependence Current Visit: Yes Status: Chronic Qualifiers: Nicotine product type: cigarettes Substance use status: uncomplicated Qualified Code(s): F17.210 - Nicotine dependence, cigarettes, uncomplicated (5) Substance induced mood disorder Current Visit: Yes Status: Chronic - Initial Treatment Plan Initial Treatment Plan: Falls precautions. Support. Detoxification. Sleep hygiene. Contact [facility] for collateral information. Observation.
[2019-04-04] MEDS: THIAMINE HCL 100 MG TABLET (FP) PO SCH (22:26)
[2019-04-04] MEDS: MELATONIN 5 MG TABLETS PO PRN (22:26)
[2019-04-05] MEDS: chlordiazePOXIDE HCL 25 MG CAPSULE PO SCH ×4 (06:13→23:23)
[2019-04-05] MEDS: chlordiazePOXIDE HCL 25 MG CAPSULE PO PRN (06:24)
[2019-04-05] MEDS: PRENATAL VITAMINS W/ FOLIC ACID TABLET (FP) PO SCH (10:18)
--- NOTE | 2019-04-05 13:59 | PN ---
[facility] CIWA - CIWA Score Nausea/Vomitin-No Nausea/No Vomiting Muscle Tremors: 3 Anxiety: 3 Agitation: 1-Slight > Activity Paroxysmal Sweats: No Perspiration Orientation: 2-Disoriented Date<2 days Tacttile Disturbances: 1-Very Mild Itch/Numbness Auditory Disturbances: 0-None Visual Disturbances: 3-Moderate Sensitivity Headache: 0-None Present CIWA-Ar Total Score: 13 [facility] Progress Note (SOAP) Subjective: Anxious, Tremors, Fatigue. Objective: PATIENT A & O X 2 (UNCERTAIN ABOUT CURRENT DAY / DATE). PATIENT OBSERVED AMBULATING ON UNIT UNASSISTED. IN NO ACUTE DISTRESS. 04/05/19 14:00 Vital Signs Temperature 97.8 F 04/05/19 09:41 Pulse Rate 101 H 04/05/19 09:41 Respiratory Rate 18 04/05/19 09:41 Blood Pressure 104/76 04/05/19 09:41 O2 Sat by Pulse Oximetry (%) Laboratory Tests 04/03/19 04/03/19 04/03/19 09:36 10:00 10:00 WBC 6.2 RBC 4.10 Hgb 12.9 Hct 39.5 MCV 96.4 H MCH 31.6 MCHC 32.7 RDW 15.7 H Plt Count 374 MPV 7.3 L Sodium 144 Potassium 4.8 Chloride 110 H Carbon Dioxide 30 Anion Gap 4 L BUN 10.5 Creatinine 1.0 Est GFR (CKD-EPI)AfAm 83.35 Est GFR (CKD-EPI)NonAf 71.91 Random Glucose 74 Calcium 8.8 Total Bilirubin 0.5 AST 11 L ALT 13 Alkaline Phosphatase 79 Total Protein 6.7 Albumin 3.2 L POC Urine HCG, Qual Negative RPR Titer HIV 1&2 Ag/Ab, 4th Gen HIV 1&2 Antibody Screen HIV P24 Antigen 04/03/19 04/03/19 04/03/19 10:00 10:00 10:00 WBC RBC Hgb Hct MCV MCH MCHC RDW Plt Count MPV Sodium Potassium Chloride Carbon Dioxide Anion Gap BUN Creatinine Est GFR (CKD-EPI)AfAm Est GFR (CKD-EPI)NonAf Random Glucose Calcium Total Bilirubin AST ALT Alkaline Phosphatase Total Protein Albumin POC Urine HCG, Qual RPR Titer Nonreactive HIV 1&2 Ag/Ab, 4th Gen Non reactive HIV 1&2 Antibody Screen Cancelled HIV P24 Antigen Cancelled LABS NOTED. Assessment: 04/05/19 14:01 WITHDRAWAL SYMPTOMS. Plan: CONTINUE DETOX. INCREASE DAILY PO WATER INTAKE.
[2019-04-05] MEDS: THIAMINE HCL 100 MG TABLET (FP) PO SCH (23:23)
[2019-04-06] MEDS: MELATONIN 5 MG TABLETS PO PRN ×2 (01:15→23:40)
[2019-04-06] MEDS: METHOCARBAMOL 500 MG TABLET PO PRN ×3 (02:24→23:22)
[2019-04-06] MEDS: chlordiazePOXIDE HCL 10 MG CAPSULE PO PRN ×2 (02:24→23:22)
[2019-04-06] MEDS: chlordiazePOXIDE HCL 10 MG CAPSULE PO SCH ×4 (04:40→22:47)
[2019-04-06] MEDS: hydrOXYzine HCL 25 MG TABLET (FP) PO PRN (04:40)
[2019-04-06] MEDS: PRENATAL VITAMINS W/ FOLIC ACID TABLET (FP) PO SCH (10:54)
--- NOTE | 2019-04-06 11:51 | PN ---
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 irritable with agitation has self control Objective: 04/06/19 11:49 Vital Signs Temperature 97.2 F L 04/06/19 09:44 Pulse Rate 81 04/06/19 09:44 Respiratory Rate 18 04/06/19 09:44 Blood Pressure 105/67 04/06/19 09:44 O2 Sat by Pulse Oximetry (%) Laboratory Last Values WBC 6.2 K/mm3 (4.0-10.0) 04/03/19 10:00 RBC 4.10 M/mm3 (3.60-5.2) 04/03/19 10:00 Hgb 12.9 GM/dL (10.7-15.3) 04/03/19 10:00 Hct 39.5 % (32.4-45.2) 04/03/19 10:00 MCV 96.4 fl (80-96) H 04/03/19 10:00 MCH 31.6 pg (25.7-33.7) 04/03/19 10:00 MCHC 32.7 g/dl (32.0-36.0) 04/03/19 10:00 RDW 15.7 % (11.6-15.6) H 04/03/19 10:00 Plt Count 374 K/MM3 (134-434) 04/03/19 10:00 MPV 7.3 fl (7.5-11.1) L 04/03/19 10:00 Sodium 144 mmol/L (136-145) 04/03/19 10:00 Potassium 4.8 mmol/L (3.5-5.1) 04/03/19 10:00 Chloride 110 mmol/L (98-107) H 04/03/19 10:00 Carbon Dioxide 30 mmol/L (21-32) 04/03/19 10:00 Anion Gap 4 MMOL/L (8-16) L 04/03/19 10:00 BUN 10.5 mg/dL (7-18) 04/03/19 10:00 Creatinine 1.0 mg/dL (0.55-1.3) 04/03/19 10:00 Est GFR (CKD-EPI)AfAm 83.35 04/03/19 10:00 Est GFR (CKD-EPI)NonAf 71.91 04/03/19 10:00 Random Glucose 74 mg/dL (74-106) 04/03/19 10:00 Calcium 8.8 mg/dL (8.5-10.1) 04/03/19 10:00 Total Bilirubin 0.5 mg/dL (0.2-1) 04/03/19 10:00 AST 11 U/L (15-37) L 04/03/19 10:00 ALT 13 U/L (13-61) 04/03/19 10:00 Alkaline Phosphatase 79 U/L (45-117) 04/03/19 10:00 Total Protein 6.7 g/dl (6.4-8.2) 04/03/19 10:00 Albumin 3.2 g/dl (3.4-5.0) L 04/03/19 10:00 POC Urine HCG, Qual Negative 04/03/19 09:36 RPR Titer Nonreactive (NONREACTIVE) 04/03/19 10:00 HIV 1&2 Ag/Ab, 4th Gen Non reactive (Non Reactive) 04/03/19 10:00 HIV 1&2 Antibody Screen Cancelled 04/03/19 10:00 HIV P24 Antigen Cancelled 04/03/19 10:00 lab noted Assessment: 04/06/19 11:50 alcohol withdrawal sx Plan: continue librium detox regimen
[2019-04-06] MEDS: THIAMINE HCL 100 MG TABLET (FP) PO SCH (22:47)
[2019-04-07] MEDS: chlordiazePOXIDE HCL 10 MG CAPSULE PO PRN (02:34)
[2019-04-07] MEDS: hydrOXYzine HCL 25 MG TABLET (FP) PO PRN (02:34)
[2019-04-07] MEDS: chlordiazePOXIDE HCL 10 MG CAPSULE PO SCH ×2 (06:05→17:28)
--- NOTE | 2019-04-07 10:03 | PN ---
[facility] CIWA - CIWA Score Nausea/Vomitin-No Nausea/No Vomiting Muscle Tremors: 2 Anxiety: 3 Agitation: 0-Normal Activity Paroxysmal Sweats: 1-Minimal Palms Moist Orientation: 0-Oriented Tacttile Disturbances: 0-None Auditory Disturbances: 0-None Visual Disturbances: 0-None Headache: 0-None Present CIWA-Ar Total Score: 6 S Progress Note (SOAP) Subjective: doing well with librium detox regimen ambulating on hallway social with peers in day room tolerate food and fluid well prefers in patient alcohol rehab discuss [facility] admission goals and expectation Objective: 04/07/19 10:02 Vital Signs Temperature 97.6 F 04/07/19 09:14 Pulse Rate 90 04/07/19 09:14 Respiratory Rate 20 04/07/19 09:14 Blood Pressure 106/66 04/07/19 09:14 O2 Sat by Pulse Oximetry (%) Laboratory Last Values WBC 6.2 K/mm3 (4.0-10.0) 04/03/19 10:00 RBC 4.10 M/mm3 (3.60-5.2) 04/03/19 10:00 Hgb 12.9 GM/dL (10.7-15.3) 04/03/19 10:00 Hct 39.5 % (32.4-45.2) 04/03/19 10:00 MCV 96.4 fl (80-96) H 04/03/19 10:00 MCH 31.6 pg (25.7-33.7) 04/03/19 10:00 MCHC 32.7 g/dl (32.0-36.0) 04/03/19 10:00 RDW 15.7 % (11.6-15.6) H 04/03/19 10:00 Plt Count 374 K/MM3 (134-434) 04/03/19 10:00 MPV 7.3 fl (7.5-11.1) L 04/03/19 10:00 Sodium 144 mmol/L (136-145) 04/03/19 10:00 Potassium 4.8 mmol/L (3.5-5.1) 04/03/19 10:00 Chloride 110 mmol/L (98-107) H 04/03/19 10:00 Carbon Dioxide 30 mmol/L (21-32) 04/03/19 10:00 Anion Gap 4 MMOL/L (8-16) L 04/03/19 10:00 BUN 10.5 mg/dL (7-18) 04/03/19 10:00 Creatinine 1.0 mg/dL (0.55-1.3) 04/03/19 10:00 Est GFR (CKD-EPI)AfAm 83.35 04/03/19 10:00 Est GFR (CKD-EPI)NonAf 71.91 04/03/19 10:00 Random Glucose 74 mg/dL (74-106) 04/03/19 10:00 Calcium 8.8 mg/dL (8.5-10.1) 04/03/19 10:00 Total Bilirubin 0.5 mg/dL (0.2-1) 04/03/19 10:00 AST 11 U/L (15-37) L 04/03/19 10:00 ALT 13 U/L (13-61) 04/03/19 10:00 Alkaline Phosphatase 79 U/L (45-117) 04/03/19 10:00 Total Protein 6.7 g/dl (6.4-8.2) 04/03/19 10:00 Albumin 3.2 g/dl (3.4-5.0) L 04/03/19 10:00 POC Urine HCG, Qual Negative 04/03/19 09:36 RPR Titer Nonreactive (NONREACTIVE) 04/03/19 10:00 HIV 1&2 Ag/Ab, 4th Gen Non reactive (Non Reactive) 04/03/19 10:00 HIV 1&2 Antibody Screen Cancelled 04/03/19 10:00 HIV P24 Antigen Cancelled 04/03/19 10:00 lab noted 04/07/19 10:03 anxious regarding bed availability in [facility] Assessment: 04/07/19 10:03 alcohol withdrawal sx alert oriented x 3 04/07/19 10:04 no shortness of breathe denies muscle pain Plan: continue librium detox regimen
[2019-04-07] MEDS: PRENATAL VITAMINS W/ FOLIC ACID TABLET (FP) PO SCH (10:23)
[2019-04-07] MEDS: METHOCARBAMOL 500 MG TABLET PO PRN ×3 (10:24→23:55)
[2019-04-07 17:01] LABS: URINE APPEARANCE CLEAR; URINE BILIRUBIN NEGATIVE (NEGATIVE); URINE COLOR YELLOW; URINE GLUCOSE (UA) NEGATIVE (NEGATIVE); URINE KETONE NEGATIVE (NEGATIVE); URINE LEUK ESTERASE NEGATIVE (NEGATIVE); URINE NITRITE NEGATIVE (NEGATIVE); URINE PROTEIN NEGATIVE (NEGATIVE); URINE UROBILINOGEN 0.2 mg/dL (0.2-1.0)
[2019-04-07] MEDS: THIAMINE HCL 100 MG TABLET (FP) PO SCH (22:44)
[2019-04-07] MEDS: MELATONIN 5 MG TABLETS PO PRN (22:45)
[2019-04-08] MEDS: ACETAMINOPHEN 325 MG TABLET (FP) PO PRN ×2 (03:22→10:34)
[2019-04-08] MEDS ORDERED: chlordiazePOXIDE HCL 10 MG CAPSULE PO ONE (05:00)
[2019-04-08] MEDS: METHOCARBAMOL 500 MG TABLET PO PRN (07:16)
--- NOTE | 2019-04-08 10:03 | DS ---
[facility] Detox Discharge Summary Admission Date: 04/03/19 Discharge Date: 04/08/19 - History Present History: Alcohol Dependence Additional Comments: 39 years old female admitted on 04/03/19 for acute alcohol withdrawal sx management doing well with libirum detox regimen no complication through out the detox stay seen by psychiatrist who contact [facility] for next dose of haldol decanoate IM alert oriented x 3 denies chest pain no shortness of breath no nausea no vomiting Pertinent Past History: nicotine dependent weight loss substance induced mood disorder - Physical Exam Results Vital Signs: Vital Signs Temperature 97.1 F L 04/07/19 22:44 Pulse Rate 110 H 04/07/19 22:44 Respiratory Rate 18 04/08/19 03:30 Blood Pressure 130/81 04/07/19 22:44 O2 Sat by Pulse Oximetry (%) Pertinent Admission Physical Exam Findings: alcohol withdrawal sx Laboratory Last Values WBC 6.2 K/mm3 (4.0-10.0) 04/03/19 10:00 RBC 4.10 M/mm3 (3.60-5.2) 04/03/19 10:00 Hgb 12.9 GM/dL (10.7-15.3) 04/03/19 10:00 Hct 39.5 % (32.4-45.2) 04/03/19 10:00 MCV 96.4 fl (80-96) H 04/03/19 10:00 MCH 31.6 pg (25.7-33.7) 04/03/19 10:00 MCHC 32.7 g/dl (32.0-36.0) 04/03/19 10:00 RDW 15.7 % (11.6-15.6) H 04/03/19 10:00 Plt Count 374 K/MM3 (134-434) 04/03/19 10:00 MPV 7.3 fl (7.5-11.1) L 04/03/19 10:00 Sodium 144 mmol/L (136-145) 04/03/19 10:00 Potassium 4.8 mmol/L (3.5-5.1) 04/03/19 10:00 Chloride 110 mmol/L (98-107) H 04/03/19 10:00 Carbon Dioxide 30 mmol/L (21-32) 04/03/19 10:00 Anion Gap 4 MMOL/L (8-16) L 04/03/19 10:00 BUN 10.5 mg/dL (7-18) 04/03/19 10:00 Creatinine 1.0 mg/dL (0.55-1.3) 04/03/19 10:00 Est GFR (CKD-EPI)AfAm 83.35 04/03/19 10:00 Est GFR (CKD-EPI)NonAf 71.91 04/03/19 10:00 Random Glucose 74 mg/dL (74-106) 04/03/19 10:00 Calcium 8.8 mg/dL (8.5-10.1) 04/03/19 10:00 Total Bilirubin 0.5 mg/dL (0.2-1) 04/03/19 10:00 AST 11 U/L (15-37) L 04/03/19 10:00 ALT 13 U/L (13-61) 04/03/19 10:00 Alkaline Phosphatase 79 U/L (45-117) 04/03/19 10:00 Total Protein 6.7 g/dl (6.4-8.2) 04/03/19 10:00 Albumin 3.2 g/dl (3.4-5.0) L 04/03/19 10:00 Urine Color Yellow 04/07/19 15:00 Urine Appearance Clear 04/07/19 15:00 Urine pH 8.0 (5.0-8.0) D 04/07/19 15:00 Ur Specific [place] 1.022 (1.010-1.035) 04/07/19 15:00 Urine Protein Negative (NEGATIVE) 04/07/19 15:00 Urine Glucose (UA) Negative (NEGATIVE) 04/07/19 15:00 Urine Ketones Negative (NEGATIVE) 04/07/19 15:00 Urine Blood Negative (NEGATIVE) 04/07/19 15:00 Urine Nitrite Negative (NEGATIVE) 04/07/19 15:00 Urine Bilirubin Negative (NEGATIVE) 04/07/19 15:00 Urine Urobilinogen 0.2 mg/dL (0.2-1.0) 04/07/19 15:00 Ur Leukocyte Esterase Negative (NEGATIVE) 04/07/19 15:00 POC Urine HCG, Qual Negative 04/03/19 09:36 RPR Titer Nonreactive (NONREACTIVE) 04/03/19 10:00 HIV 1&2 Ag/Ab, 4th Gen Non reactive (Non Reactive) 04/03/19 10:00 HIV 1&2 Antibody Screen Cancelled 04/03/19 10:00 HIV P24 Antigen Cancelled 04/03/19 10:00 lab noted - Treatment Hospital Course: Detox Protocol Followed, Detoxed Safely, Responded well, Discharged Condition Good, Rehab Referral Accepted Patient has Accepted [facility] Ref[facility] - Medication Discharge Medications: Ambulatory Orders Haloperidol Decanoate [Haldol Decanoate (Long-Acting) -] 500 mg IM MONTHLY 10/28 Gabapentin [Neurontin -] 300 mg PO Q8H #21 capsule 01/06/19 Melatonin 10 mg PO HS #14 capsule 01/06/19 - Diagnosis (1) Alcohol dependence with uncomplicated withdrawal Current Visit: Yes Status: Acute (2) Weight loss Current Visit: Yes Status: Acute (3) GERD (gastroesophageal reflux disease) Current Visit: Yes Status: Chronic Qualifiers: Esophagitis presence: without esophagitis Qualified Code(s): K21.9 - Gastro -esophageal reflux disease without esophagitis (4) Substance induced mood disorder Current Visit: Yes Status: Suspected - AMA Did Patient Leave Against Medical Advice: No CIWA Score - CIWA Score Nausea/Vomitin-No Nausea/No Vomiting Muscle Tremors: 1-None Visible, but [place] Anxiety: 1-Mildly Anxious Agitation: 0-Normal Activity Paroxysmal Sweats: No Perspiration Orientation: 0-Oriented Tacttile Disturbances: 0-None Auditory Disturbances: 1-Very Mild Visual Disturbances: 0-None Headache: 0-None Present CIWA-Ar Total Score: 3
[2019-04-08 10:12] VITALS: BP 118/79; PULSE 126; TEMP 97.8
[2019-04-08] MEDS: PRENATAL VITAMINS W/ FOLIC ACID TABLET (FP) PO SCH (10:35)
== END 2019-04-08 12:39 | disposition other institution (70) | DRG 774 ==
LOC: YASAS 08:51 → Y3N 11:05
PROVIDERS: ADMIT Surgery; ATTEND Surgery
PROC: HZ2ZZZZ Detoxification Services for Substance Abuse Treatment (ICD-10-PCS; principal; 2019-04-03)
DX: F10.230 Alcohol dependence with withdrawal, uncomplicated (principal); F14.20 Cocaine dependence, uncomplicated; F17.210 Nicotine dependence, cigarettes, uncomplicated; F19.24 Other psychoactive substance dependence with psychoactive substance-induced mood disorder; F20.9 Schizophrenia, unspecified; K21.9 Gastro-esophageal reflux disease without esophagitis; R63.4 Abnormal weight loss; D50.9 Iron deficiency anemia, unspecified; R74.8 Abnormal levels of other serum enzymes; R94.5 Abnormal results of liver function studies; Z86.69 Personal history of other diseases of the nervous system and sense organs
CPT/HCPCS: 36415; 80053; 81003; 81025; 85027; 86593; 87389

== ENCOUNTER 2019-04-08 12:29 | Inpatient (IN) | payer OTHER ==
--- NOTE | 2019-04-08 10:12 | HP ---
[facility] Re[facility] Assess/Revision - Admission History Admitted to Rehab from: [facility] Date of Admission to Rehab: 04/08/19 - Findings Detox History & Physical reviewed: Yes Concur with findings: Yes Comments/Additional Findings: tranferred from detox to rehab admission as per protocol Inpatient Rehab Admission - Rehab Decision to Admit Inpatient rehab admission?: Yes - Initial Determination Are CD services needed?: Yes Free of communicable disease: Yes Not in need of hospitalization: Yes - Rehab Admission Criteria Previous failed treatment: Yes Poor recovery environment: Yes Comorbidities: Yes Lacks judgement: No Patient is meeting Inpatient Rehab admission criteria:: Yes
[~2019-04-08 12:29] MED LIST changes: +IBUPROFEN 400 MG TABLET (FP) PO PRN; -NICOTINE 14 MG/24 HOURS TOPICAL PATCH TD PRN
[2019-04-08] MEDS ORDERED: METHOCARBAMOL 500 MG TABLET PO PRN (13:33)
[2019-04-08] MEDS ORDERED: hydrOXYzine PAMOATE 25 MG CAPSULE (FP) PO PRN (13:35)
[2019-04-08] MEDS: ACETAMINOPHEN 325 MG TABLET (FP) PO PRN ×3 (15:25→23:27)
[2019-04-08] MEDS: THIAMINE HCL 100 MG TABLET (FP) PO SCH (22:01)
[2019-04-08] MEDS: MELATONIN 5 MG TABLETS PO PRN (22:13)
[2019-04-08] MEDS ORDERED: IBUPROFEN 400 MG TABLET (FP) PO ONE (22:46)
[2019-04-08] MEDS ORDERED: BENZOCAINE 20 % GEL TUBE MM PRN (22:46)
[2019-04-09] MEDS: ACETAMINOPHEN 325 MG TABLET (FP) PO PRN ×2 (06:47→12:39)
--- NOTE | 2019-04-09 07:47 | PN ---
[facility] Progress Note Note: ASKED TO SEE CLIENT FOR DROOLING AND UNSTEADY GAIT. CLIENT REPORTS DROOLING PRIOR TO ADMISSION. RECENT SEIZURE REPORTED WELL 1 WEEK AGO. STATES SHE WAS AT [facility] BUT SIGNED OUT AMA. DENIES ANY COMPLAINTS. Vital Signs Temperature 98.4 F 04/09/19 07:20 Pulse Rate 99 H 04/09/19 07:20 Respiratory Rate 18 04/09/19 07:20 Blood Pressure 124/95 04/09/19 07:20 O2 Sat by Pulse Oximetry (%) SEEN LYING IN BED AWAKE, A/O X 2-3. CONFUSED ABOUT DATE BUT KNOWS MONTH AND YEAR. HEENT- NCAT, PERRLA, EOMI, OLD SCARS FROM WHAT SHE REPORTS SUSTAINED FROM FALLS RELATED TO SEIZURE, TREMULOUS DISPOSITION OF HEAD, MMM, NO LAD CV- RRR LUNGS- CTAB EXTREMITIES- SLIGHT TREMORS FELT SKIN- DRY INTACT A- 39 Y.O. FEMALE W/ HX/O ALCOHOLISM AND COCAINE DEP S/P DETOX HISTORY OF SEIZURES NOT COMPLAINT WITH MEDS. CLIENT DOES NOT RECALL NAME OF MED OR EVEN WHEN SHE LAST TOOK IT. GABAPENTIN NOTED ON HOME PROFILE. BUT HAS NEVER RECEIVED DOSE WHILE HERE ON ANY OF HER ADMISSIONS SHE IS AWAKE /ALERT AND ABLE TO MAKE NEEDS KNOWN SHUFFLING/UNSTEADY GAIT NOTED WITH FOR[facility] [employer]. P- WC FOR ASSIST WITH AMBULATION LABS FROM DETOX REVIEWED WILL ENDORSE TO PRIMARY PROVIDER TO F/U ON GABAPENTIN DOSE AT OUTSIDE RX CONT TO MONITOR CLINICALLY FALL PRECAUTION SEIZURE PRECAUTION.
--- NOTE | 2019-04-09 08:46 | PN ---
[facility] Progress Note Note: Vital Signs Temperature 98.4 F 04/09/19 07:20 Pulse Rate 99 H 04/09/19 07:20 Respiratory Rate 18 04/09/19 07:20 Blood Pressure 124/95 04/09/19 07:20 O2 Sat by Pulse Oximetry (%) Patient evaluated after reports received pt is drowsy, increase drooling and unsteady gait. Patient reports she is treated with IM Haldol, as per patient she was given last injection in mid February 2019, does not recall the date. Patient reports about one week ago she suffered as seizure prior to rehab admission to this facility and left AMA from [facility] after one day. Patient reports she does not take take gabapentin in the community, plummer reviewed patient received gabapentin tid during her stay in December 2018, no other hx taking this medication. Pharmacy listed on file contacted [facility] [phone] to confirm patient's medication, [facility] is [facility] the system but has not received nay medication from that pharmacy. Patient evaluated at the bedside Aox3, + drooling, no acute distress EENT WNL no adventitious breath sounds + resting right hand resting tremor full ROM, unsteady gait Plan: medical consult requested 1:1 observation psych consult re: psych meds fall precautions continue to monitor
--- NOTE | 2019-04-09 10:19 | EKG ---
Test Reason : Blood Pressure : / mmHG Vent. Rate : 078 BPM Atrial Rate : 078 BPM P-R Int : 152 ms QRS Dur : 066 ms QT Int : 378 ms P-R-T Axes : 069 074 056 degrees QTc Int : 430 ms NORMAL SINUS RHYTHM ANTERIOR INFARCT , AGE UNDETERMINED ABNORMAL ECG NO PREVIOUS ECGS AVAILABLE Confirmed by MAXIMINO TAVERAS MD ([id number]) on 04/09/2019 10:19:07 AM Referred By: Confirmed By:MAXIMINO TAVERAS MD
[2019-04-09] MEDS: PRENATAL VITAMINS W/ FOLIC ACID TABLET (FP) PO SCH (10:28)
--- NOTE | 2019-04-09 12:53 | PN ---
Progress Note (short form) - Note Progress Note: Patient is a 39 yo F with a PMHx of Alcohol and cocaine abuse, seizures, schizophrenia? (on Monthly Haldol injections), here for alcohol rehab, s/p detox. Was consulted because patient appeared mildly sedated with associated drooling. Patient is complaining of hand tremors which she says she gets all the time. She denies history of drooling. says it started this morning. Per patient, she receives monthly haldol injections. She said her last dose was in February but EMR says last dose March 20. Pharmacy was called by nursing, and no records of haldol given. Medication list states patient was on Neurontin 300mg q8, unknown when she last received it or if she ever did. On PE: Patient not drooling (resolved). eating lunch comfortably. resting hand tremor. shuffling gait when walking. CN 2-12 intact. 5/5 strength throughout. face symmetric. no facial droop. Vital Signs Period Temp Pulse Resp BP Sys/Seo Pulse Ox Last 24 Hr 98.1 F-98.4 F 76-99 18-18 104-124/73-95 Plan: No concerns for acute event at this time. Vitals stable. Sedation (improved), drooling (resolved), could be from Librium side effect vs Haldol Shuffling gait, resting tremor, likely side effect from Haldol? Psych consult recommended for further evaluation and medication adjustment. Unknown last dose of Haldol, neurontin. If change in status, please reach out to medical team. Thank you for the consult. Suyapa Nova PGY-3
--- NOTE | 2019-04-09 14:21 | PN ---
[facility] Progress Note Note: Patient was evaluated by Dr. Nova and 1;1 observation no longer needed. Continue fall precautions Continue to monitor
[2019-04-09] MEDS: IBUPROFEN 400 MG TABLET (FP) PO PRN ×2 (14:29→21:42)
[2019-04-09] MEDS: LIDOCAINE 5% TOPICAL PATCH TP SCH (15:38)
[2019-04-09] MEDS: MELATONIN 5 MG TABLETS PO PRN (21:42)
[2019-04-09] MEDS: THIAMINE HCL 100 MG TABLET (FP) PO SCH (21:42)
[2019-04-09] MEDS: LIDOCAINE PATCH REMOVAL MC SCH (21:43)
[2019-04-10] MEDS: ACETAMINOPHEN 325 MG TABLET (FP) PO PRN ×3 (06:52→21:29)
--- NOTE | 2019-04-10 07:49 | PN ---
Teaching Attending Note Name of Resident: Suyapa Nova ATTENDING PHYSICIAN STATEMENT I saw and evaluated the patient. I reviewed the resident's note and discussed the case with the resident. I agree with the resident's findings and plan as documented. SUBJECTIVE: Agreed with resident's subjective findings for 04/09/19. OBJECTIVE: Agreed with resident's objective findings for 04/09/19. ASSESSMENT AND PLAN: Agreed with resident's assessment and plan. Movements might be to side effects of haldol especially with the intermittent use of medications. Patient must follow up with psychiatry upon discharge. Dr. Knight
[2019-04-10] MEDS: LIDOCAINE 5% TOPICAL PATCH TP SCH (10:42)
[2019-04-10] MEDS: PRENATAL VITAMINS W/ FOLIC ACID TABLET (FP) PO SCH (10:42)
--- NOTE | 2019-04-10 12:45 | CONSULT ---
[facility] Psychiatric Consult - Data Date of interview: 04/10/19 Admission source: 3N Identifying data: Ms Warner is a 39 years old single Black female, unemployed receving SSI, homeless seeking rehab treatment for alcohol, cocaine and cannabis Substance Abuse History: Reports history of alcohol, crack cocaine and marijuana use. Refer to addiction counsselor's summary for further information Medical History: Significant for history of alcohol related seizure. Smokes 3 cigarettes daily Psychiatric History: Patient is well known to this facility from previous admissions. She has an extensive history of psychiatric illness since her late 20's when she was diagnosed with Schizophrenia. She has had multiple psychiatric hospitalizations. She is under the care of Dr Ignacio from [facility] team and she is prescribed cogentin 0.5 mgbid and Haldol Decanoate 100 mg IM Q monthly. Claims that she received her last injection of Haldol Decanoate on 03/06/19 which mean that she is a week overdue. She denies history of suicide attempts but records at [facility] indicate a distant suicide attempt at age 25 (jump off of a bridge). At present, denies experiencing psychotic symptoms, S/H ideations. However, reports feeling anxious and sleeping poorly Physical/Sexual Abuse/Trauma History: Denies history of emotional, physica or sexual abuse as well as DV relationship Mental Status Exam - Mental Status Exam Alert and Oriented to: Time, Place, Person Cognitive Function: Grossly Intact, Impaired Patient Appearance: Unkempt, Disheveled Mood: Anxious Affect: Appropriate Patient Behavior: Restless, Uncooperative Speech Pattern: Delayed, Slurred, Rambling Voice Loudness: Normal Thought Process: Intact, Disorganized Thought Disorder: Not Present Hallucinations: Denies Suicidal Ideation: Denies Homicidal Ideation: Denies Insight/Judgement: Fair Sleep: Poorly Appetite: Good Muscle strength/Tone: Normal Gait/Station: Normal Psychiatric Findings - Problem List ([place] 1, 2,3) (1) Schizophrenia Current Visit: No Status: Chronic Qualifiers: Schizophrenia type: unspecified Qualified Code(s): F20.9 - Schizophrenia, unspecified Comment: On haloperidol decanoate. Dose not disclosed. Patient is followed by the [facility] team. (2) Substance-induced anxiety disorder Current Visit: Yes Status: Acute (3) Substance-induced sleep disorder Current Visit: No Status: Acute (4) Alcohol dependence Current Visit: Yes Status: Acute (5) Cocaine dependence Current Visit: Yes Status: Acute (6) Cannabis dependence Current Visit: No Status: Acute (7) Nicotine dependence Current Visit: No Status: Chronic Qualifiers: Nicotine product type: cigarettes Substance use status: uncomplicated Qualified Code(s): F17.210 - Nicotine dependence, cigarettes, uncomplicated (8) Alcohol related seizure Current Visit: No Status: Resolved - Initial Treatment Plan Initial Treatment Plan: 1) Continue Cogentin 0.5 mg po BID. 2) Haldol Decanoate 100 mg IM today. 3) Continue inpatient rehabilitation
--- NOTE | 2019-04-10 13:22 | DS ---
[facility] Rehab Discharge Summary - [facility] Rehab Discharge Summary Admission Date: 04/08/19 Discharge Date: 04/10/19 - History Present History: Alcohol dependence, Cannabis dependence, Cocaine dependence Pertinent Past History: This 39 years old female with alcohol and cocaine dependence,completed detox and has been in rehab for two days. During her stay in rehab, she was placed on 1:1 observation the first day because of stupor and an unsteady gait. multiple admissions in detox and rehab,last detox [facility] 12/20/18 to 12/23/18 last rehab 12/23/18 to 01/06/19 alcohol related seizure last 1 week ago weight loss nicotine dependence 3 cigarette/day,does not need nicotine replcement no significant period of sobriety plan to go to rehab after detox history of schizophrenia - Discharge Physical Exam Vital Signs: Vital Signs Temperature 98.2 F 04/10/19 07:27 Pulse Rate 99 H 04/10/19 07:27 Respiratory Rate 18 04/10/19 07:27 Blood Pressure 120/84 04/10/19 07:27 O2 Sat by Pulse Oximetry (%) Pertinent Admission Physical Exam Findings: Physical General Appearance: Irritable, no apparent distress HEENTM: drooling, PERRLA Respiratory: Lungs Clear,s Neck:upple, Trachea in good position Cardiology: Regular Rhythm, Regular Rate, S1, S2 Abdominal: +Bowel Sounds, Back: Yes: Muscle Spasm Musculoskeletal:full range of Motion, full weight bearing, unsteady gait, on fall precautions. Neurological:tele tech II-XII intact Integumentary: Yes: Dry - Medication Discharge Medications: Ambulatory Orders Haloperidol Decanoate [Haldol Decanoate (Long-Acting) -] 100 mg IM MONTHLY 10/28 Gabapentin [Neurontin -] 300 mg PO Q8H #21 capsule 01/06/19 Melatonin 5 mg PO HS 04/08/19 - Discharge Instructions Diet, activity, other medical instructions: Diet: Activity: Other medical instructions:
[2019-04-10] MEDS ORDERED: HALOPERIDOL DECANOATE 100 MG/ML IM ONE (13:30)
[2019-04-10] MEDS: BENZTROPINE MESYLATE 1 MG TABLET (FP) PO SCH ×2 (13:31→21:27)
--- NOTE | 2019-04-10 13:40 | PN ---
[facility] Progress Note (SOAP) Subjective: Patient stated that she wants to leave rehab AMA. On my way to the unit, I found the patient wandering in the [place]. The MA had been dispatched to find her. While she was able to bear full weight while walking, she had difficulty looking in the direction she was walking and had to be reminded to look ahead in the direction she was walking rather than to the side. This provider and the MA escorted the patient back to the unit and requested that she rest in her room. She requested a muscle relaxant for back pain and sleeping medication in order to go to sleep ( it is 1:30 in the afternoon), which would potentiate her unsteady gait. This provider offered her tylenol for back pain. This provider explained that the muscle relaxant may increase her sleepiness and that a sleeping pill at this time would prevent her from sleeping tonight. Psychiatric provider was called to see the patient and ordered cogentin. PMHx: This 39 years old female with alcohol and cocaine dependence,completed detox and has been in rehab for two days. During her stay in rehab, she was placed on 1:1 observation the first day because of stupor and an unsteady gait. She was re-evaluated on day two and 1:1 was discontinued and she was placed on fall precautions. Stated she received her last dose of haldol in February, but contact with her community PCP indicated that it was March 20. She has not had a dose of cogentin, which may account for the drooling. Ms. Warner has had multiple admissions in detox and rehab,last detox [facility] to 12/23/18 last rehab 12/23/18 to 01/06/19 Reports an alcohol related seizure 1 week prior to admission, no significant period of sobriety, and a history of schizophrenia Objective: Physical General Appearance: Moderate Distress, Irritable, Anxious HEENTM: JV, Respiratory: Lungs Clear, Neck: Yes: Within Normal Limits, Supple, Trachea in good position Cardiology:Regular Rhythm, Regular Rate, S1, S2 Abdominal: +Bowel Sounds, Soft, Musculoskeletal: full range of Motion, full weight bearing and unsteady gait Neurological: staffing assistant II-XII NML intact 04/10/19 13:41 04/10/19 13:46 Vital Signs (72 hours) 04/08/19 04/09/19 04/09/19 12:43 00:30 07:20 Temperature 97.5 F L 98.4 F Pulse Rate 105 H 99 H Respiratory 18 18 18 Rate Blood Pressure 114/82 124/95 04/09/19 04/10/19 04/10/19 09:21 00:30 00:38 Temperature 98.1 F 98.3 F Pulse Rate 76 62 Respiratory 18 16 18 Rate Blood Pressure 104/73 125/81 04/10/19 07:27 Temperature 98.2 F Pulse Rate 99 H Respiratory 18 Rate Blood Pressure 120/84 Assessment: patient with extrapyrimidal effects of haldol. Anxiety Unsafe ambulation requiring fall precautions. At risk for unsafe AMA 04/10/19 13:47 04/10/19 13:48 Plan: 1. patient was given 0.5 of cogentin 2. Given Tylenol for muscle pain 3. seen by psychiatry 4. Patient agreed to stay in rehab.
--- NOTE | 2019-04-10 15:30 | PN ---
[facility] Progress Note Note: patient has been wandering off the unit. As requested by Nursing jewelry department supervisor Radha, patient was placed on 1:1 observation for the night.
[2019-04-10] MEDS ORDERED: PT OWN MED DRAWER 7, Y5N ONE (16:22)
[2019-04-10] MEDS: MELATONIN 5 MG TABLETS PO PRN (21:27)
[2019-04-10] MEDS: LIDOCAINE PATCH REMOVAL MC SCH (21:27)
[2019-04-10] MEDS: THIAMINE HCL 100 MG TABLET (FP) PO SCH (21:27)
[2019-04-11] MEDS ORDERED: diphenhydrAMINE HCL 25 MG CAPSULE (FP) PO ONE (01:59)
[2019-04-11] MEDS: IBUPROFEN 400 MG TABLET (FP) PO PRN (02:14)
[2019-04-11] MEDS: LIDOCAINE 5% TOPICAL PATCH TP SCH (10:34)
[2019-04-11] MEDS: ACETAMINOPHEN 325 MG TABLET (FP) PO PRN (10:34)
[2019-04-11] MEDS: PRENATAL VITAMINS W/ FOLIC ACID TABLET (FP) PO SCH (10:35)
[2019-04-11] MEDS: BENZTROPINE MESYLATE 1 MG TABLET (FP) PO SCH ×2 (10:35→23:26)
--- NOTE | 2019-04-11 15:19 | PN ---
[facility] Progress Note Note: Pt c/o hand tremors. Was seen 2 days ago for same complaint. [place] to be due to side effects from Haldol/antipsychotics. Will order vistaril and clonidine prn for Sx relief
[2019-04-11] MEDS ORDERED: cloNIDine HCL 0.1 MG TABLET PO PRN (15:20)
[2019-04-11] MEDS: hydrOXYzine PAMOATE 25 MG CAPSULE (FP) PO PRN (17:23)
[2019-04-11] MEDS: THIAMINE HCL 100 MG TABLET (FP) PO SCH (23:26)
[2019-04-11] MEDS: LIDOCAINE PATCH REMOVAL MC SCH (23:26)
[2019-04-12] MEDS: ACETAMINOPHEN 325 MG TABLET (FP) PO PRN ×2 (02:12→18:28)
[2019-04-12] MEDS: BENZTROPINE MESYLATE 1 MG TABLET (FP) PO SCH ×2 (09:10→21:17)
[2019-04-12] MEDS: LIDOCAINE 5% TOPICAL PATCH TP SCH (09:10)
[2019-04-12] MEDS: PRENATAL VITAMINS W/ FOLIC ACID TABLET (FP) PO SCH (09:10)
[2019-04-12] MEDS: hydrOXYzine PAMOATE 25 MG CAPSULE (FP) PO PRN (18:28)
[2019-04-12] MEDS: THIAMINE HCL 100 MG TABLET (FP) PO SCH (21:17)
[2019-04-12] MEDS: LIDOCAINE PATCH REMOVAL MC SCH (21:17)
[2019-04-12] MEDS: MELATONIN 5 MG TABLETS PO PRN (21:18)
[2019-04-13] MEDS: hydrOXYzine PAMOATE 25 MG CAPSULE (FP) PO PRN ×3 (02:30→22:25)
[2019-04-13] MEDS: LIDOCAINE 5% TOPICAL PATCH TP SCH (09:51)
[2019-04-13] MEDS: PRENATAL VITAMINS W/ FOLIC ACID TABLET (FP) PO SCH (09:52)
[2019-04-13] MEDS: BENZTROPINE MESYLATE 1 MG TABLET (FP) PO SCH ×2 (09:52→22:24)
[2019-04-13] MEDS: ACETAMINOPHEN 325 MG TABLET (FP) PO PRN ×2 (09:52→22:27)
[2019-04-13] MEDS: LIDOCAINE PATCH REMOVAL MC SCH (22:24)
[2019-04-13] MEDS: THIAMINE HCL 100 MG TABLET (FP) PO SCH (22:24)
[2019-04-13] MEDS: MELATONIN 5 MG TABLETS PO PRN (22:25)
[2019-04-14 07:21] VITALS: BP 128/86; PULSE 87; TEMP 97.6
--- NOTE | 2019-04-14 09:19 | DS ---
[facility] Rehab Discharge Summary - [facility] Rehab Discharge Summary Admission Date: 04/08/19 Discharge Date: 04/14/19 - History Pertinent Past History: this 39 years old female with alcohol and cocaine dependence, multiple admissions in detox and rehab weight loss nicotine dependence 3 cigarette/day, no significant period of sobriety history of schizophrenia - Discharge Physical Exam Vital Signs: Vital Signs Temperature 97.6 F 04/14/19 07:20 Pulse Rate 87 04/14/19 07:20 Respiratory Rate 18 04/14/19 07:20 Blood Pressure 128/86 04/14/19 07:20 O2 Sat by Pulse Oximetry (%) Pertinent Admission Physical Exam Findings: - Physical General Appearance: no apparent distress HEENTM: JV, Respiratory: Lungs Clear, Neck: Supple, Trachea in good position Cardiology:Regular Rhythm & Regular Rate, S1, S2 Abdominal: +Bowel Sounds, Musculoskeletal:full range of Motion, gait steady Neurological: motor mechanic II-XII NML intact,Motor Strength 5/5 Integumentary: warm,Dry. good skin turgor - Treatment Discharge Condition: Outpatient referral accepted Hospital Course: Medically stable for discharge. During rehab, patient was on 1:1 because of extrapyrimidal effects of haldol causing unsteady gait and unsafe transfer from sitting/lying in bed to standing also wandering. However, patient was started on cogentin and drooling & unsteady gait resolved. Client's community counselor is aware of her behavior and on discharge will be safely transported to her community program. Medically stable for discharge. - Medication Discharge Medications: Ambulatory Orders Haloperidol Decanoate [Haldol Decanoate (Long-Acting) -] 100 mg IM MONTHLY 10/28 Gabapentin [Neurontin -] 300 mg PO Q8H #21 capsule 01/06/19 Melatonin 5 mg PO HS 04/08/19 Benztropine Mesylate [Cogentin -] 0.5 mg PO BID #14 tablet 04/14/19 - Discharge Instructions Diet, activity, other medical instructions: Diet: as tolerated Activity: as tolerated Other medical instructions: Patient will receive aftercare at [facility], social services specialist Kenzie Gibson. - AMA Did Patient Leave Against Medical Advice: No
[2019-04-14] MEDS: PRENATAL VITAMINS W/ FOLIC ACID TABLET (FP) PO SCH (10:01)
[2019-04-14] MEDS ORDERED: PT OWN MED DRAWER 7, Y5N ONE (10:02)
[2019-04-14] MEDS: ACETAMINOPHEN 325 MG TABLET (FP) PO PRN (10:02)
--- NOTE | 2019-04-14 10:12 | PN ---
[facility] Progress Note Note: Patient is discharged today. Script for 30 days supply of Cogentin 0.5 mg/hs [facility] [place] [address]
[2019-04-18] MEDS ORDERED: HALOPERIDOL DECANOATE 500 MG/5ML MDV IM ONE (10:00)
== END 2019-04-14 10:24 | disposition home or self-care (01) | DRG 772 ==
LOC: YASAS 12:29 → Y3E 12:38
PROVIDERS: ADMIT Neuromusculoskeletal Medicine & OMM; ATTEND Neuromusculoskeletal Medicine & OMM
PROC: HZ42ZZZ Group Counseling for Substance Abuse Treatment, Cognitive-Behavioral (ICD-10-PCS; principal; 2019-04-08)
DX: F10.20 Alcohol dependence, uncomplicated (principal); F14.20 Cocaine dependence, uncomplicated; F12.20 Cannabis dependence, uncomplicated; F17.210 Nicotine dependence, cigarettes, uncomplicated; F20.9 Schizophrenia, unspecified; F19.282 Other psychoactive substance dependence with psychoactive substance-induced sleep disorder; F19.280 Other psychoactive substance dependence with psychoactive substance-induced anxiety disorder; F41.9 Anxiety disorder, unspecified; R63.4 Abnormal weight loss; Z68.1 Body mass index [BMI] 19.9 or less, adult; Z86.69 Personal history of other diseases of the nervous system and sense organs; Z59.0 Homelessness
CPT/HCPCS: 93005; 93010